=== PATIENT | female | born 1940 | race Caucasian/White ===

== ENCOUNTER 2025-05-17 09:07 | Inpatient (IN) | payer OTHER, SELFPAY ==
[2025-05-17 09:27] VITALS: BP 145/69
[2025-05-17 09:33] VITALS: BMI 36.4
--- NOTE | 2025-05-17 10:29 | CON.CAR ---
Addendum entered and electronically signed by Francisco Smith DO 05/17/25 15:18:
I saw and examined the patient.
The Hematologist Oncologist's note was reviewed and I agree with the note.
Comment:
Patient is pleasant 84-year-old female presenting initially for dofetilide load however has been reporting increasing shortness of breath, lower extremity swelling, weight gain, abdominal girth increase, and intermittent episodes of chest aching.
EKG demonstrates sinus rhythm anterior infarct pattern with lateral ST-T wave abnormality which appears similar to prior ECG. QT/QTc 369/439 ms. Additionally, patient's been noting episodes of PAF palpitations weakness and dizziness. Regarding
her chest pain, she notes that this is typically at rest with positioning and has not occurred with activity or exertion. Initial troponin negative, BNP 560.
GENERAL: no acute distress, obese
EYE: sclera anicteric
NECK: Supple, no JVD appreciated, no carotid bruit appreciated
ENT: normal nose, moist mucosal membranes
CARDIAC: Regular rate and rhythm, +S1/S2, no murmur, rubs, or gallops
CHEST/PULMONARY: Poor inspiratory effort, bibasilar crackles
ABDOMEN: Soft, without focal tenderness; mild distention
NEUROLOGICAL: Alert and oriented x3
SKIN: Warm and dry, no rash; 1+ bilateral lower extremity edema
PSYCH: Normal and appropriate interaction.
Telemetry shows sinus rhythm/a paced V sensed
A/P as below
Will discontinue digoxin monitor renal function. I am concerned that if patient were to have any renal dysfunction while on metformin and digoxin and dofetilide, this could account for serious complication therefore, would recommend discontinuation
of digoxin.
Echocardiogram pending
IV diuresis with Lasix 40 mg IV twice daily monitoring intake and output, daily weights, renal function
Replete magnesium, potassium
As patient nearing euvolemia, will start dofetilide
Monitor on telemetry
Original Note:
Consultation
Consultation Request
Date/Time Consultation Requested: 05/17/2025
Date/Time Consultation Performed: 05/17/2025
Reason for Consultation: H&P for direct admission for Tikosyn
Medical History
-
Chief Complaint: Palpitations, shortness of breath, chest pain
History of Present Illness:
84-year-old female with past medical history of paroxysmal atrial fibrillation s/p ablation in 2019, heart failure preserved EF, nonobstructive CAD, atrial tachycardia, hypertension, type 2 diabetes, obstructive sleep apnea on CPAP pacemaker (St
Humza MRI compatible), hyperlipidemia, stage IIIa chronic kidney disease, presents for elective admission for dofetilide loading in setting of increased A-fib burden. Patient is followed by Dr. Aguirre at [facility]. Most recently
she was seen in the office on 04/30/2025 and diltiazem was increased to 300 mg daily. She was subsequently started on digoxin load 0.5 mg x 2 days then 0.125 mcg daily. Losartan was stopped due to hypotension.
On presentation today, patient reports a 1-1/2-week history of left sided chest pain as well as back pain that occurs intermittently, does not radiate, not associated with exertion, most often occurs in the evenings. She has been more short of
breath with exertion and outpatient Lasix uptitrated to 40 mg twice daily with no improvement in shortness of breath and 7 pound weight gain over the past week. Baseline weight 191 pounds, weight up to 198 pounds. She has been having increasing
paroxysms of atrial fibrillation which are symptomatic with palpitations, weakness, and dizziness. A-fib can be triggered with minimal activity, walking from one side of the room to another. No syncope or falls.
In addition, her sugars have been more elevated, in the 300 range at times.
Past medical history:
Paroxysmal atrial fibrillation
- PVI 2019
Pacemaker, Saint Humza MRI compatible
Nonobstructive CAD per cath 03/2020
Heart failure preserved EF
Type 2 diabetes
obstructive sleep apnea on CPAP
Hypertension
Hyperlipidemia
Diabetic polyneuropathy
Past Medical History
Past Medical History: Other (As above)
Social History
Tobacco: Non-Smoker
Alcohol: None
Personal:
Living: With Family
Family History
Family History: Reviewed & Not Pertinent
Allergies / Home Medications
Allergy/AdvReac Type Severity Reaction Status Date / Time
cefprozil Allergy Mild loose Verified 08/09/20 07:19
stools
guaifenesin Allergy Unknown Unknown Verified 08/09/20 07:19
trimethoprim Allergy Unknown Unknown Verified 08/09/20 07:19
codeine Allergy Nausea Verified 08/09/20 07:19
ibuprofen Allergy loose Verified 08/09/20 07:19
stools
morphine Allergy Vomiting Verified 08/09/20 07:19
naproxen Allergy Nausea / Verified 08/09/20 07:19
Vomiting
shellfish derived Allergy Rash Verified 08/09/20 07:19
sulfamethoxazole Allergy Rash Verified 08/09/20 07:19
�Medication �Instructions �Recorded �Confirmed �Type
calcium 500 mg (as 1 ea PO BID 03/23/20 08/09/20 History
carbonate)-vitamin D3 3.125 mcg
(125 unit) tablet
carvedilol 12.5 mg tablet 12.5 mg PO BID ##180 03/23/20 08/09/20 Rx
diltiazem HCl 240 mg 240 mg PO NOON 03/23/20 08/09/20 History
capsule,extended release 24 hr
estradiol 0.01% (0.1 mg/gram) 42.5 gm VG .TWICEAWEEK 03/23/20 03/23/20 History
vaginal cream (Estrace)
famotidine 40 mg tablet (Pepcid) 40 mg PO HS 03/23/20 08/09/20 History
glimepiride 2 mg tablet 2 mg PO DAILY 03/23/20 08/09/20 History
insulin glargine 100 unit/mL 10 units SC NOON 03/23/20 08/09/20 History
subcutaneous solution (Lantus
U-100 Insulin)
losartan 50 mg tablet 50 mg PO HS 03/23/20 08/09/20 History
magnesium oxide 400 mg PO HS 03/23/20 08/09/20 History
multivitamin 1 ea PO DAILY 03/23/20 08/09/20 History
pyridoxine (vitamin B6) 100 mg 100 mg PO DAILY 03/23/20 08/09/20 History
tablet (Vitamin B-6)
apixaban 5 mg tablet (Eliquis) 5 mg PO BID #1 tab 08/09/20 08/09/20 Rx
furosemide 20 mg tablet 20 mg PO DAILY #1 tab 08/09/20 08/09/20 Rx
metformin 1,000 mg tablet 1,000 mg PO BID ##0 08/09/20 08/09/20 Rx
Review of Systems
-
History Source: Patient
All other systems: Negative unless noted
Constitutional: No Symptoms
Physical Exam
Vital Signs
Temp Pulse Resp BP Pulse Ox
98.7 F 70 18 145/69 94
05/17/25 09:33 05/17/25 10:15 05/17/25 09:33 05/17/25 09:27 05/17/25 09:33
GEN: No distress, awake, Ox3
HEENT: supple, anicteric, mmm
LUNGS: decreased at bases
CV: Reg, S1/S2, , no murmur
ABD: soft, BS+, NT/ND
EXT: 2+ B/L LE edema
NEURO: Gross non-focal
SKIN: No rash
Impression / Plan
-
PCP:
Primary blemish remover: Dr. Aguirre
Impression:
Symptomatic, paroxysmal atrial fibrillation
Chest pain
Shortness of breath
Lower extremity edema
Heart failure preserved EF
Permanent pacemaker, Saint Humza MRI compatible
Chronic kidney disease stage IIIa
Hypertension
Hyperlipidemia
Nonobstructive CAD
Obstructive sleep apnea on CPAP
Type 2 diabetes mellitus
Paralyzed vocal cords
Previous cardiovascular testing:
Echo 02/18/2025: LVEF 55 to 60%, mildly dilated LA, mild to moderate mitral stenosis, mean gradient 5 mmHg, RVSP 57 mmHg
Left heart cath 03/25/2020: LAD widely patent with minimal luminal irregularities. Diagonal branch 40% ostial stenosis. OM1 50% stenosis involving bifurcation of both branches. OM 2 smooth proximal 40% stenosis. RCA small nondominant vessel.
Plan:
symtomatic Paroxysmal afib
-currently on Digoxin 0.125 mg daily (added 05/07/2025), Coreg 6.25 mg bid and Diltiazem 300 mg daily with continued paroxysmal afib with RVR
-Currently in normal sinus rhythm
-eventual initiation of antiarrhythmic med with Tikosyn however treat HF and evaluate current CP/SOB first
-QTc 439 ms
-Dig level 0.8
-cont OAC with Eliquis
- Multaq because prohibitive in past
- Avoiding Amio due to history of COPD
Acute on chronic heart failure preserved EF
-Volume overloaded on exam and home weight up 7 pounds in past week. Baseline weight 191 pounds. Lasix uptitrated in past week without improvement in symptoms or weight
- Check proBNP
- Check updated echo
- Lasix 40 mg IV now
- Losartan recently stopped due to hypotension
- Continue Coreg 6.25 mg twice daily
-SGLT2-I cost prohibitive
Chest pain
-1-1/2-week history of intermittent chest pain
- Troponin negative x 1, will trend
- Check echo today
- History of nonobstructive CAD on cardiac cath in 2019
- Twelve-lead EKG: Normal sinus rhythm, first-degree AVB, nonspecific ST T wave abnormality, QTc 439 ms
Data Reviewed
-
EKG: Tracing Personally Visualized and interpreted
Labs: Labs Reviewed by me
Old Records: Requested and Reviewed
[2025-05-17 10:51] LABS: Hematocrit 28.7 % (37.0-47.0); Hemoglobin 9.5 g/dL (12.0-16.0); Mean Corp Hgb Conc. 33.1 g/dL (33.0-37.0); Mean Corpuscular Volume 95.0 fL (81.0-99.0); Platelet Count 226 10^3/uL (130-400); Red Cell Dist. Width 15.4 % (11.5-14.5)
[2025-05-17 10:53] LABS: ALT (SGPT) 19 U/L (0-35); AST (SGOT) 16 U/L (14-36); Albumin 4.1 g/dl (3.5-5.0); Alkaline Phosphatase 69 U/L (38-126); Blood Urea Nitrogen 19 mg/dl (7-17); Calcium 9.3 mg/dl (8.4-10.2); Carbon Dioxide 34 mmol/L (22-30); Chloride 96 mmol/L (98-107); Estimated Creatinine Clearance 66 ml/min; Glucose 365 mg/dl (70-99); Magnesium 1.4 mg/dl (1.6-2.3); Potassium 3.8 mmol/L (3.5-5.1); Sodium 136 mmol/L (135-145); Total Protein 6.7 g/dl (6.3-8.2); eGFR > 60.00
[2025-05-17 11:01] LABS: Troponin I < 0.012 ng/ml
[2025-05-17 11:13] LABS: Digoxin 0.8 ng/ml (0.8-2.0)
[2025-05-17 11:14] VITALS: BMI 36.4
[2025-05-17] MEDS: CARDIZEM CD PO (12:05)
[2025-05-17] MEDS: NEURONTIN PO (12:07)
[2025-05-17] MEDS: COREG PO (12:07)
[2025-05-17] MEDS: ELIQUIS PO (12:08)
[2025-05-17] MEDS: PROTONIX PO (12:09)
[2025-05-17] MEDS: LANTUS SC (12:11)
--- NOTE | 2025-05-17 12:12 | RESPNOTE ---
discussed NARA hx and cpap with patient and spouse. Mrs. Fu states she wears cpap at night with nasal pillows, with O2 when needed. patient nor recall cpap settings, but spouse recalls starting pressure of +4 cmh2o. patient agreeable to
trying hospital unit with nasal mask tonight. will TT [facility] [facility] for orders.
[2025-05-17] MEDS: LASIX 40 MG IV ×2 (12:26→17:15)
[2025-05-17 12:28] VITALS: BP 147/55
[2025-05-17] MEDS: MAGNESIUM OXIDE 400 MG PO ×2 (12:30→17:17)
[2025-05-17] MEDS: KCL 20 MEQ PO (12:30)
[2025-05-17] MEDS: GLUCOPHAGE 1000 MG PO (12:31)
[2025-05-17 13:24] LABS: Glucose - Point of Care 293 mg/dl (70-99)
[2025-05-17] MEDS: NOVOLOG FLEXPEN-MODERATE RESISTANCE 5 UNITS SC (13:34)
--- NOTE | 2025-05-17 14:06 | CM ---
Reviewed chart.. Met with and Mrs. Fu to review discharge plans. She states prior to admission she resides with her spouse in a one stroy home with one step to enter. She states prior to admission she ambulates with a rolling walker or singe
point cane depending on how she is feeling. She states she has a rolling walker, single point cane and home 02. [employer] [facility] her home 02. She states she has had VNA services [place] past. She also states she has been in SNF/Rehab. in
the past. She states she has a prescription plan and uses [facility]. Will check on her co-pay for Dofetilide. She will also need a three day script sent to [facility] for a three day supply to go home with her. Medically work-up in
progress. The discharge plan is to return home with her spouse when medically stable.
--- NOTE | 2025-05-17 14:11 | HPS.HSE ---
Addendum entered and electronically signed by Robert Elaine MD 05/17/25 16:19:
Patient seen and examined independently
Plan of care discussed with nurse practitioner Yolanda and cardiology team
Impression:
Acute CHF preserved EF
Acute hypoxic respiratory insufficiency secondary to above.
Symptomatic paroxysmal A-fib.
Chest pain likely multifactoral
Diabetes with hyperglycemia
Conditions present on admission:
Chronic CHF preserved EF
Paroxysmal A-fib with history of ablation.
Nonobstructive CAD
IDDM.
Hypertension
Obstructive sleep apnea on CPAP at night
Vocal cord paralysis
Chronic pain due to spinal stenosis on Suboxone
Plan:
Symptomatic A-fib baseline prior history of ablation
Attempt to introduce digoxin with no improvement of rate control.
Presented for Tikosyn load.
Plan is for discontinuation of digoxin
Optimizing volume status prior to initiation of Tikosyn.
In addition would optimal to drop off metformin given potential interaction and fluctuating renal function
Amiodarone is not an optimal action given COPD.
Continue Coreg.
Continue diltiazem.
Continue anticoagulation with apixaban
Telemetry monitoring
Acute CHF preserved EF.
Given chest pain, will update echocardiogram
Diuresis with Lasix 40 mg IV twice daily.
Daily weights
Daily BMP.
Off losartan given marginal BP
IDDM.
Persistent hyperglycemia. Possibly due to stress of acute hypoxia and CHF decompensation
Hold oral glucose lowering medications including glipizide and metformin
Update hemoglobin A1c
Basal bolus protocol
Continue Lantus 30 units at bedtime.
Adjust daily.
Obstructive sleep apnea
COPD by history
Not on oxygen supplementation prior to admission
Continue CPAP at night
Chronic pain due to spinal stenosis
Continue buprenorphine
Continue IV diuresis
Original Note:
Family Physician
-
Family Physician: INTERVIEWE UNKNOWN - PT NOT
Chief Complaint
-
dofetilide load
History of Present Illness
Patient is a 84-year-old female with past medical history significant for hypertension, type 2 diabetes, paroxysmal atrial fibrillation s/p ablation in 2019, HFpEF, hyperlipidemia and stage IIIa chronic kidney disease who presented to [facility] for
elective admission for dofetilide loading for a-fib. Patient and spouse at bedside. Patient follows with [facility] in [place], Dr. Aguirre. Patient seen 2 weeks ago with digoxin load and increased diltiazem to 300mg daily. Patient comes in
today for direct admission and reports left sided chest pain that radiates to the back that has been on going for a week and a half intermittently. Patient does report increased exertional dyspnea recently and a 7 pound weight gain in approximately
a week. Patient does report recent episodes of atrial fibrillation to be symptomatic with palpitations, weakness and diziness. Denies any syncope or falls.
Medical History
Past Medical History
Past Medical History: Reports Other
Additional Past Medical History:
hypertension
type 2 diabetes
paroxysmal atrial fibrillation s/p ablation in 2019
HFpEF
hyperlipidemia
stage IIIa chronic kidney disease
nonobstructive CAD
atrial tachycardia
obstructive sleep apnea on CPAP
pacemaker (St Humza MRI compatible)
Past Surgical History: Reports Other
Additional Past Surgical History:
bilateral hip replacements
left should repair
hysterectomy
tubal ligation
appendectomy
tonsillectomy
spinal stenosis
Social History
Tobacco: Non-smoker
Alcohol: Occasional
Drug: None
Personal:
Living: With Family
Employment: Retired
Family History
Family History: Other (Father: DM, CAD; Mother: CAD )
Allergies / Home Medications
Allergies reflects when Allergies were last updated in [employer].
Home Medications with original date entered in [employer]
Allergy/Medication List:
Allergies
Allergy/AdvReac Type Severity Reaction Status Date / Time
cefprozil Allergy Mild loose Verified 08/09/20 07:19
stools
guaifenesin Allergy Unknown Unknown Verified 08/09/20 07:19
trimethoprim Allergy Unknown Unknown Verified 08/09/20 07:19
codeine Allergy Nausea Verified 08/09/20 07:19
ibuprofen Allergy loose Verified 08/09/20 07:19
stools
morphine Allergy Vomiting Verified 08/09/20 07:19
naproxen Allergy Nausea / Verified 08/09/20 07:19
Vomiting
shellfish derived Allergy Rash Verified 08/09/20 07:19
sulfamethoxazole Allergy Rash Verified 08/09/20 07:19
Home Medications
calcium 500 mg (as carbonate)-vitamin D3 3.125 mcg (125 unit) tablet 1 ea PO BID 03/23/20
estradiol 0.01% (0.1 mg/gram) vaginal cream (Estrace) 42.5 gm VG .TWICEAWEEK 03/23/20
famotidine 40 mg tablet (Pepcid) 40 mg PO HS 03/23/20
glimepiride 2 mg tablet 2 mg PO DAILY 03/23/20
insulin glargine 100 unit/mL subcutaneous solution (Lantus U-100 Insulin) 10 units SC NOON 03/23/20
losartan 50 mg tablet 50 mg PO HS 03/23/20
magnesium oxide 400 mg PO HS 03/23/20
multivitamin 1 ea PO DAILY 03/23/20
apixaban 5 mg tablet (Eliquis) 5 mg PO BID #1 tab 08/09/20
metformin 1,000 mg tablet 1,000 mg PO BID ##0 08/09/20
azelastine 137 mcg (0.1 %) nasal spray 1 spray intranasal BID 05/17/25
buprenorphine 20 mcg/hour weekly transdermal patch 1 patch transdermal Q7D 05/17/25
carvedilol 6.25 mg tablet 6.25 mg PO BID 05/17/25
digoxin 125 mcg (0.125 mg) tablet 125 mcg PO DAILY 05/17/25
diltiazem HCl 300 mg capsule,24 hr,extended release 300 mg PO DAILY 05/17/25
ferrous sulfate 325 mg (65 mg iron) tablet,delayed release 325 mg PO DAILY 05/17/25
furosemide 20 mg tablet 40 mg PO DAILY 05/17/25
gabapentin 300 mg tablet 300 mg PO DAILY 05/17/25
gabapentin 600 mg tablet 600 mg PO HS 05/17/25
potassium gluconate 595 mg (99 mg) tablet 595 mg PO DAILY 05/17/25
tizanidine 2 mg capsule 2 mg PO QHS PRN muscle spasms 05/17/25
tramadol 50 mg tablet 50 mg PO TID PRN back pain 05/17/25
zinc acetate 50 mg (zinc) capsule 50 mg PO DAILY 05/17/25
Review of Systems
-
History Source: Patient
Constitutional: Reports Weight Gain; Denies Fever or Chills
EENT: Denies Sore Throat
Respiratory: Reports Trouble Breathing (exertional dyspnea ); Denies Cough
Cardiac: Reports Chest Pain (intermittent, no aggravating factors, radiates to back ) and Palpitations; Denies Diaphoresis or Syncope
Abdomen/GI: Denies Abdominal Pain, Nausea, Vomiting or Diarrhea
: Denies Dysuria, Frequency or Urgency
Musculoskeletal: Reports Edema
Skin: Denies Rash
Neurological: Reports Dizzy; Denies Headache, Weakness or Numbness
Hematologic/Lymphatic: Denies Bleeding
Physical Exam
Vital Signs
Vital Signs
Temp Pulse Resp BP Pulse Ox
98.7 F 66 18 147/55 93
05/17/25 09:33 05/17/25 12:26 05/17/25 09:33 05/17/25 12:26 05/17/25 10:57
Physical Exam
General: Well Nourished, No Apparent Distress, Comfortable, Conversant and Morbidly Obese
HEENT: NormoCephalic, Moist mucous membranes and Atraumatic
Respiratory: Clear, Non Labored Respirations and Decreased Breath Sounds (bilateral bases )
Cardiac: S1/S2, Regular Rhythm and Peripheral Edema (bilateral lower extremity +2 ); No Murmur, Rub or Gallop
Breast: Deferred by me
GI: Soft, Non Tender, Non Distended and Normal Bowel Sounds
Rectal: Deferred by Provider
Genito-urinary: Deferred by me
Musculoskeletal: No Clubbing and No Cyanosis
Skin: Warm and IV/Catheter Site
Neuro: Awake and AO x 3
Hematologic/Lymphatic: No Lymphadenopathy
Psych: Calm
Laboratory Results
-
05/17/25 10:15
05/17/25 10:15
Laboratory Results
Total Bilirubin 0.4 mg/dl (0.2-1.3) 05/17/25 10:15
AST 16 U/L (14-36) 05/17/25 10:15
ALT 19 U/L (0-35) 05/17/25 10:15
Alkaline Phosphatase 69 U/L (38-126) 05/17/25 10:15
Troponin I < 0.012 ng/ml 05/17/25 10:15
Data Reviewed
-
Diagnostic Radiology: Report Reviewed by me (CXR: No acute cardiopulmonary abnormality. Mild cardiomegaly.)
Medical Tests (Nuc Med, Echo, EKG etc): Report Reviewed by me (EKG: SINUS RHYTHM WITH 1ST DEGREE A-V BLOCK POSSIBLE ANTERIOR INFARCT (CITED ON OR BEFORE 05-Aug-2020) ST and T WAVE ABNORMALITY, CONSIDER LATERAL ISCHEMIA)
Lab Data: Labs Reviewed by me (hgb 9.5, hct 28.7, HCO3 34, BUN 19, Creat 0.7, est CrCl 66, eGFR >60.00, Mag 1.4)
Impression/Plan
-
IMPRESSION/PLAN:
#dofetilide load
hgb 9.5, hct 28.7, HCO3 34
EKG: SINUS RHYTHM WITH 1ST DEGREE A-V BLOCK
POSSIBLE ANTERIOR INFARCT (CITED ON OR BEFORE 05-Aug-2020)
ST and T WAVE ABNORMALITY, CONSIDER LATERAL ISCHEMIA
CXR: No acute cardiopulmonary abnormality.
Mild cardiomegaly.
- Admit to IVU
- Cardiology Consult
- load per Cardiology recs
#paroxysmal atrial fibrillation
s/p ablation in 2019
- continue carvedilol, diltiazem, and Eliquis
#hypomagnesemia
Mag 1.4
- replete
- monitor electrolytes
#hypertension
- continue losartan
#type 2 diabetes
- AccuCheck AC & HS
- SSI
- continue Lantus
- hold glimepiride
- hold metformin
#HFpEF
- daily weights
- I & Os
- continue carvedilol and digoxin
- IV furosemide BID
#hyperlipidemia
#stage IIIa chronic kidney disease
BUN 19, Creat 0.7, est CrCl 66, eGFR >60.00
Code status: full code
DVT prophylaxis: Eliquis
--- NOTE | 2025-05-17 15:11 | CARDSERVLU ---
Echocardiogram with [facility] completed after protocol screening completed. Allergies verified.
Patent IV site: _left wrist____
IV site flushed with 0.9% NaCl pre and post administration.
Diluted bolus method utilized to enhance visualization of ventricular avalos.
Total volume given: __3.5__ mL
Patient tolerated all procedures well without complications.
[2025-05-17 15:53] VITALS: BP 144/55
[2025-05-17] MEDS: KLOR-CON 20 MEQ PO (16:50)
[2025-05-17 17:41] LABS: Troponin I < 0.012 ng/ml
[2025-05-17 18:11] LABS: Glucose - Point of Care 301 mg/dl (70-99)
[2025-05-17] MEDS: NOVOLOG FLEXPEN-MODERATE RESISTANCE 7 UNITS SC (18:39)
[2025-05-17 18:54] VITALS: BP 140/47
--- NOTE | 2025-05-17 19:01 | PTCARENOTE ---
pt paced on the monitor, hr in the 70s, vss. when assuming care of pt, pt c/o 5/10 CP and 'some SOB.' 2LO2 NC applied. notified collin allen NP. IV started and blood work drawn as ordered. pt ambulating to bsx1 w/ rw and tolerating. pt educated
on plan of care and pt verbalized understanding.
pt denies cp/sob at this time. pt now resting in bed comfortably. call vásquez within reach.
[2025-05-17] MEDS: COREG 6.25 MG PO (19:47)
[2025-05-17] MEDS: ELIQUIS 5 MG PO (19:47)
[2025-05-17 22:57] VITALS: BP 151/75
[2025-05-17] MEDS: COZAAR 50 MG PO (22:59)
[2025-05-17] MEDS: ZANAFLEX 2 MG PO (22:59)
[2025-05-17] MEDS: NEURONTIN 600 MG PO (22:59)
[2025-05-17 23:04] LABS: Glucose - Point of Care 236 mg/dl (70-99)
[2025-05-18] VITALS (7 sets, daily range): BP systolic 103–146; BP diastolic 35–76; BMI 35.4
--- NOTE | 2025-05-18 01:50 | PTCARENOTE ---
Pt AAOx3 and SOBOBA bilaterally. Tele monitor NSR and occasionally Apaced, HR in the 60-70s. Patient sating 97-98% on 2L of O2. Pt c/o SOB on exertion, lungs clear throughout. Pt uses RW and requires standby assist when ambulating in room. Denies any
dizziness. Fall risk precautions maintained, pt rings appropriately. Pt voiding on BSC, monitoring output. Urine color orange d/t Pyridium medication. Pt denies any burning. Call vásquez within reach.
[2025-05-18 04:11] LABS: Hematocrit 29.8 % (37.0-47.0); Hemoglobin 9.8 g/dL (12.0-16.0); Mean Corp Hgb Conc. 32.9 g/dL (33.0-37.0); Mean Corpuscular Volume 94.6 fL (81.0-99.0); Platelet Count 223 10^3/uL (130-400); Red Cell Dist. Width 15.2 % (11.5-14.5)
[2025-05-18 04:39] LABS: Blood Urea Nitrogen 16 mg/dl (7-17); Calcium 9.4 mg/dl (8.4-10.2); Carbon Dioxide 37 mmol/L (22-30); Chloride 95 mmol/L (98-107); Estimated Creatinine Clearance 76 ml/min; Glucose 184 mg/dl (70-99); Potassium 3.8 mmol/L (3.5-5.1); Sodium 138 mmol/L (135-145); eGFR > 60.00
[2025-05-18 06:59] LABS: Glucose - Point of Care 148 mg/dl (70-99)
[2025-05-18] MEDS: NOVOLOG FLEXPEN-MODERATE RESISTANCE SC (07:48)
[2025-05-18] MEDS: PROTONIX 40 MG PO (08:53)
[2025-05-18] MEDS: FEOSOL 325 MG PO (08:53)
[2025-05-18] MEDS: KCL 20 MEQ PO ×2 (08:53→11:38)
[2025-05-18] MEDS: VITAMIN B-12 500 MCG PO (08:54)
[2025-05-18] MEDS: ELIQUIS 5 MG PO ×2 (08:54→19:41)
[2025-05-18] MEDS: OSCAL CAL 500 500 MG PO (08:54)
[2025-05-18] MEDS: THERAGRAN 1 TABLET PO (08:55)
[2025-05-18] MEDS: MAGNESIUM OXIDE 400 MG PO (08:55)
[2025-05-18] MEDS: NEURONTIN 300 MG PO (08:57)
[2025-05-18] MEDS: VITAMIN D3 (cholecalciferol) 25 MCG PO (08:57)
[2025-05-18] MEDS: COREG 6.25 MG PO ×2 (08:58→19:41)
[2025-05-18] MEDS: CARDIZEM CD 300 MG PO (08:58)
[2025-05-18] MEDS: LASIX 40 MG IV ×2 (08:59→16:00)
[2025-05-18] MEDS: LANTUS 0.3 UNITS SC (09:09)
--- NOTE | 2025-05-18 09:48 | PTCARENOTE ---
received patient this am, verified Buprenorphine patch on walking rounds. monitor shows NSR, VSS. EKG done this am as ordered.
[2025-05-18 11:33] LABS: Magnesium 1.5 mg/dl (1.6-2.3)
[2025-05-18 11:50] LABS: Glycohemoglobin (HgbA1c) 8.9 % (4.0-5.6)
--- NOTE | 2025-05-18 11:51 | W.PN.CARDCBS ---
Addendum entered and electronically signed by Eddie Peña MD 05/18/25 12:36:
I saw and examined the patient.
The FOLD SKIVER or PA's note was reviewed and I agree with the note.
Comment: General: Well developed, well nourished in NAD.
Neck: Supple, no JVD, HJR, carotids +2 B/L, no bruits bilaterally.
Heart: Non displaced PMI, RRR, no murmurs, No S3, S4, no rubs.
Lungs: Scattered rhonchi
Extremities: No clubbing, cyanosis or edema bilaterally.
Neuro: Grossly nonfocal, awake, alert and oriented x3.
Will continue to diurese and initiate Tikosyn which was planned to prevent recurrent A-fib
Original Note:
Today's Communication / Plan
-
-cont diuresis
-replete Mag
-will initiate Tikosyn
Impression / Plan
-
PCP:
Primary custom marine canvas fabricator: Dr. Aguirre
Impression:
Symptomatic, paroxysmal atrial fibrillation
Chest pain
Shortness of breath
Lower extremity edema
Heart failure preserved EF
Permanent pacemaker, [employer] MRI compatible
Chronic kidney disease stage IIIa
Hypertension
Hyperlipidemia
Nonobstructive CAD
Obstructive sleep apnea on CPAP
Type 2 diabetes mellitus
Paralyzed vocal cords
Previous cardiovascular testing:
Echo 02/18/2025: LVEF 55 to 60%, mildly dilated LA, mild to moderate mitral stenosis, mean gradient 5 mmHg, RVSP 57 mmHg
Left heart cath 03/25/2020: LAD widely patent with minimal luminal irregularities. Diagonal branch 40% ostial stenosis. OM1 50% stenosis involving bifurcation of both branches. OM 2 smooth proximal 40% stenosis. RCA small nondominant vessel.
Echo 05/17/2025: Normal LV size, LVEF 61%, normal RV size and systolic function with increased RV wall thickness, trileaflet sclerotic aortic valve, mild mitral stenosis, mean transmitral gradient 6 mmHg, mild to moderate TR, PASP 50 mmHg
Plan:
Symptomatic paroxysmal afib
-currently on Coreg 6.25 mg bid and Diltiazem 300 mg daily with continued paroxysmal afib with RVR in outpt setting. Admitted with plan to start Tikosyn but found to be in acute on chronic HF so diuresing first. Outpt Digoxin stopped due to
contraindicated with Tikosyn.
-Currently in normal sinus rhythm
-eventual initiation of antiarrhythmic med with Tikosyn however treat HF first
-QTc 428 ms
-cont OAC with Eliquis
- Multaq because prohibitive in past
- Avoiding Amio due to history of COPD
-keep K > 4, Mag >2. Will replete both today as K 3.8-on KCl 20 meq daily and ordered extra KCl 20 meq x 1. Mag 1.5- on Mag Oxide 400 mg daily, will give additional Magnesium 2 gm IV today
Acute on chronic heart failure preserved EF
-Volume overloaded on presentation w/ 7 lb wt gain in one week. Started on Lasix 40 mg IV twice daily and weight down 6 pounds overnight to 199 lbs with improvement in SOB and abd distention. Baseline weight 191 pounds. Cont IV Lasix.
- pro BNP 560 on admit 05/17/25
- Losartan recently stopped in outpt setting due to hypotension
-Replating K and mag as above
- Continue Coreg 6.25 mg twice daily
-SGLT2-I cost prohibitive
Progress Note - Portable Feed Mill Operator
Subjective
Date of Service: May 18, 2025
feels less SOB and pants less tight
maintaining NSR
Objective
Labs:
05/18/25 03:51
05/18/25 03:51
Labs
Hgb 9.8 g/dL (12.0-16.0) L 05/18/25 03:51
Hct 29.8 % (37.0-47.0) L 05/18/25 03:51
Plt Count 223 10^3/uL (130-400) 05/18/25 03:51
Sodium 138 mmol/L (135-145) 05/18/25 03:51
Potassium 3.8 mmol/L (3.5-5.1) 05/18/25 03:51
BUN 16 mg/dl (7-17) 05/18/25 03:51
Creatinine 0.6 mg/dL (0.6-1.0) 05/18/25 03:51
Glucose 184 mg/dl (70-99) H 05/18/25 03:51
Digoxin 0.8 ng/ml (0.8-2.0) 05/17/25 10:15
Troponins
05/17/25 05/17/25
10:15 16:48
Troponin I < 0.012 < 0.012
Vital Signs and I&O:
Vital Signs
Temp Pulse Resp BP Pulse Ox
98.5 F 71 20 120/48 96
05/18/25 06:57 05/18/25 10:00 05/18/25 06:57 05/18/25 07:01 05/18/25 08:30
Vital Signs
Temp Pulse Resp BP Pulse Ox
98.5 F 71 20 120/48 96
05/18/25 06:57 05/18/25 10:00 05/18/25 06:57 05/18/25 07:01 05/18/25 08:30
Intake & Output
05/16/25 05/17/25 05/18/25 05/19/25
06:59 06:59 06:59 06:59
Intake Total 840 / 840
Output Total 1950 / 1950
Balance -1110 / -1110
Physical Exam
Physical Exam
GEN: No distress, awake, Ox3
HEENT: supple, anicteric, mmm
LUNGS: rales R base
CV: Reg, S1/S2, , no murmur
ABD: soft, BS+, NT/ND
EXT: 1+ B/L LE edema
NEURO: Gross non-focal
SKIN: No rash
--- NOTE | 2025-05-18 12:03 | W.PN.HOSP.TC ---
Today's Communication/Plan
-
Continue IV diuresis
Assessment / Plan
Assessment / Plan
Impression:
Acute CHF preserved EF
Acute hypoxic respiratory insufficiency secondary to above.
Symptomatic paroxysmal A-fib.
Chest pain likely multifactoral
Diabetes with hyperglycemia
Conditions present on admission:
Chronic CHF preserved EF
Paroxysmal A-fib with history of ablation.
Nonobstructive CAD
IDDM.
Hypertension
Obstructive sleep apnea on CPAP at night
Vocal cord paralysis
Chronic pain due to spinal stenosis on Suboxone
Plan:
Symptomatic A-fib baseline prior history of ablation
Attempt to introduce digoxin with no improvement of rate control.
Presented for Tikosyn load.
Plan is for discontinuation of digoxin
Optimizing volume status prior to initiation of Tikosyn.
In addition would optimal to drop off metformin given potential interaction and fluctuating renal function
Amiodarone is not an optimal action given COPD.
Continue Coreg.
Continue diltiazem.
Continue anticoagulation with apixaban
Telemetry monitoring
Acute CHF preserved EF.
Given chest pain, will update echocardiogram
Diuresis with Lasix 40 mg IV twice daily.
Daily weights
Daily BMP.
Off losartan given marginal BP
IDDM.
Persistent hyperglycemia. Possibly due to stress of acute hypoxia and CHF decompensation
Hold oral glucose lowering medications including glipizide and metformin
Update hemoglobin A1c
Basal bolus protocol
Continue Lantus 30 units at bedtime.
Adjust daily.
Obstructive sleep apnea
COPD by history
Not on oxygen supplementation prior to admission
Continue CPAP at night
Chronic pain due to spinal stenosis
Continue buprenorphine
Anticipated Discharge: 24 - 48 hours
Subjective/Interval History
-
Date of Service: May 18, 2025
Objective Data
-
Labs:
Laboratory Results
05/18/25
03:51
WBC 6.9
Hgb 9.8 L
Hct 29.8 L
Plt Count 223
Sodium 138
Potassium 3.8
Chloride 95 L
Carbon Dioxide 37 H
BUN 16
Creatinine 0.6
Glucose 184 H
Calcium 9.4
Vital Signs:
Vital Signs
Temp Pulse Resp BP Pulse Ox
98.5 F 71 20 120/48 96
05/18/25 06:57 05/18/25 10:00 05/18/25 06:57 05/18/25 07:01 05/18/25 08:30
I&O
05/17/25 05/18/25 05/19/25
06:59 06:59 06:59
Intake Total 840 / 840
Output Total 1950 / 1949
Balance -1110 / -1110
Physical Exam
-
General: Well Developed and No Apparent Distress
HEENT: Normocephalic, Atraumatic and Moist Mucous Membranes
Respiratory: Clear to Auscultation
Cardiac: Regular Rhythm and S1/S2; Negative Murmur, Rub or Gallop
GI: Soft, Nontender, Nondistended and Normal Bowel Sounds; Negative Organomegaly
Rectal: Deferred by Provider
Musculoskeletal: No Clubbing, No Cyanosis and No Edema
Skin: Negative Rash
Neuro: Nonfocal/Grossly Intact
--- NOTE | 2025-05-18 12:38 | CM ---
Addendum entered by Laura Haile 05/18/25 15:33:
Telephone call to [facility] to check if they have Dofetilide 500 mcg bid. [facility] states they do have a Dofetilide 500 mcg in stock.
Addendum entered by Laura Haile 05/18/25 15:30:
Telephone call to [facility] to check on co-pay for Dofetilide 500 mcg bid to check on co-pay. Her co-pay would be zero.
Original Note:
Reviewed chart. Met with and Mrs. Fu to review discharge plans. She states she is feeling better. We reviewed VNA Services. At this time she is declining VNA Services. Prior to admission she resides with her spouse in a one story home
with one step to enter. Prior to admission she ambulates with a rolling walker or singe point cane depending on how she is feeling. She has a rolling walker, single point cane and home 02. [employer] services her home 02. She has had VNA services in
the distance past. She has been in SNF/Rehab. in the past. She has a prescription plan and uses [facility]. Will check on her co-pay for Dofetilide. She will also need a three day script sent to [facility] for a three day supply to go home
with her. Medically work-up in progress. The discharge plan is to return home with her spouse when medically stable.
[2025-05-18 12:49] LABS: Glucose - Point of Care 236 mg/dl (70-99)
[2025-05-18] MEDS: NOVOLOG FLEXPEN-MODERATE RESISTANCE 3 UNITS SC (12:58)
[2025-05-18] MEDS: MAGNESIUM SULFATE 50 IV (12:58)
--- NOTE | 2025-05-18 13:02 | PTCARENOTE ---
mag 1.5 supplemented as ordered. K 3.8 supplemented as ordered.
--- NOTE | 2025-05-18 14:00 | W.CARD.TIKOS ---
Initiate Tikosyn
-
I verify that the patient has not taken any verapamil (Isoptin/Calan), ketoconazole (Nizoral), cimetidine (Tagamet), trimethoprim (Trimpex), trimethoprim/sulfamethoxazole (Bactrim), megesterol (Megace), prochlorperazine (Compazine),
hydrochlorothiazide (HCTZ), dolutegravir (Tivicay) or any Class I or Class III anti-arrhythmic within the last three days
AND
I verify that the patient has not taken amiodarone within the last THREE months, or that the patient's amiodarone plasma concentration is <0.3 mcg/mL.
Creatinine 0.6 mg/dL (0.6-1.0) 05/18/25 03:51
Estimated Creat Clear 76 ml/min 05/18/25 03:51
calculated creatinine clearance 101.4
Does patient have a Ventricular Conduction Abnormality: No
I have assessed the baseline QTc interval (using QT for heart rate less than 60 bpm) and deemed the patient is appropriate for Dofetilide therapy. I understand that Tikosyn is contraindicated if the QTc is >440msec (500msec in patients with
ventricular conduction abnormalities).
Baseline QTc (in msec): 428
QTc interval is greater than 440msec without conduction abnormality OR greater than 500msec with a conduction abnormality, but acceptable to proceed per Cardiology attending.
Ordering Physician: Eddie Peña
[2025-05-18] MEDS: TIKOSYN 500 MCG PO (16:03)
[2025-05-18 17:56] LABS: Glucose - Point of Care 316 mg/dl (70-99)
[2025-05-18] MEDS: NOVOLOG FLEXPEN-MODERATE RESISTANCE 7 UNITS SC (17:57)
--- NOTE | 2025-05-18 18:29 | PTCARENOTE ---
Addendum entered by Nohemy Crowder RN 05/18/25 18:46:
correction QTC 471
Original Note:
Tikosyn imitated, post 2 hour EKG, QTC 428, no further orders at this time.
[2025-05-18] MEDS: NEURONTIN 600 MG PO (22:12)
[2025-05-18] MEDS: COZAAR 50 MG PO (22:12)
[2025-05-18] MEDS: ZANAFLEX 2 MG PO (22:12)
[2025-05-18 22:17] LABS: Glucose - Point of Care 400 mg/dl (70-99)
[2025-05-18 23:12] LABS: Glucose 375 mg/dl (70-99)
[2025-05-18] MEDS: NOVOLOG FLEXPEN 9 UNITS SC (23:27)
[2025-05-19] VITALS (9 sets, daily range): BP systolic 115–148; BP diastolic 43–68; PULSE 62–64; BMI 35.5
[2025-05-19] MEDS: NOVOLOG FLEXPEN 2 UNITS SC (02:07)
--- NOTE | 2025-05-19 02:27 | DOWNTIME ---
There was a [employer] Client Lead Java Software Engineer Downtime on 05/19/2025 from 0100 to 05/19/2025 at 0215. Downtime documentation of patient's care, including medication administrations, has been reconciled in the electronic record per guidelines. Refer to the
patient's paper chart under the miscellaneous tab to see printed paper medication records and downtime forms.
--- NOTE | 2025-05-19 02:53 | PTCARENOTE ---
Tele monitor remains SR w/ AV block and occasionally Apaced. Pt denies any pain or discomfort. Sating 96% on 2L of O2, and remains YU. Lungs clear throughout. CPAP ordered for HS.
HS Blood sugar 400. Stat venous glucose obtained per protocol w/ a result of 375. Josephine SOCIAL WORK INSTRUCTOR aware. Orders obtained for 9 Units of Novolog, given at 23:27. Repeat accucheck in 2hrs w/ a result of 311. Josephine SOCIAL WORK INSTRUCTOR updated. Orders obtained to
administer 2 units of Novolog, and repeat blood sugar 2hrs post med administration. See MAR for further details. Pt aware of POC. Fall risk precautions maintained. Call vásquez in reach.
[2025-05-19 04:15] LABS: Glucose - Point of Care 234 mg/dl (70-99)
[2025-05-19 05:10] LABS: Blood Urea Nitrogen 18 mg/dl (7-17); Calcium 9.8 mg/dl (8.4-10.2); Carbon Dioxide 37 mmol/L (22-30); Chloride 95 mmol/L (98-107); Estimated Creatinine Clearance 57 ml/min; Glucose 235 mg/dl (70-99); Magnesium 2.2 mg/dl (1.6-2.3); Potassium 4.1 mmol/L (3.5-5.1); Sodium 138 mmol/L (135-145); eGFR > 60.00
[2025-05-19] MEDS: TIKOSYN 500 MCG PO ×2 (05:32→17:12)
[2025-05-19] MEDS: ULTRAM 50 MG PO ×2 (05:40→22:27)
--- NOTE | 2025-05-19 07:38 | W.PN.CARDCBS ---
Addendum entered and electronically signed by Eddie Peña MD 05/19/25 09:20:
I saw and examined the patient.
The GENERAL ADJUSTER or PA's note was reviewed and I agree with the note.
Comment: General: Well developed, well nourished in NAD.
Neck: Supple, no JVD, HJR, carotids +2 B/L, no bruits bilaterally.
Heart: Non displaced PMI, RRR, no murmurs, No S3, S4, no rubs.
Lungs: Scattered rhonchi
Extremities: No clubbing, cyanosis or edema bilaterally.
Neuro: Grossly nonfocal, awake, alert and oriented x3.
Will continue to treat CHF with IV Lasix. Tolerating Tikosyn loading. Remains in sinus rhythm
Original Note:
Today's Communication / Plan
-
continue IV lasix
continue tikosyn
follow QTc
continue eliquis
Impression / Plan
-
PCP:
Primary heading up machine operator: Dr. Aguirre
Impression:
Symptomatic, paroxysmal atrial fibrillation
Chest pain
Shortness of breath
Lower extremity edema
Heart failure preserved EF
Permanent pacemaker, [employer] MRI compatible
Chronic kidney disease stage IIIa
Hypertension
Hyperlipidemia
Nonobstructive CAD
Obstructive sleep apnea on CPAP
Type 2 diabetes mellitus
Paralyzed vocal cords
Previous cardiovascular testing:
Echo 02/18/2025: LVEF 55 to 60%, mildly dilated LA, mild to moderate mitral stenosis, mean gradient 5 mmHg, RVSP 57 mmHg
Left heart cath 03/25/2020: LAD widely patent with minimal luminal irregularities. Diagonal branch 40% ostial stenosis. OM1 50% stenosis involving bifurcation of both branches. OM 2 smooth proximal 40% stenosis. RCA small nondominant vessel.
Echo 05/17/2025: Normal LV size, LVEF 61%, normal RV size and systolic function with increased RV wall thickness, trileaflet sclerotic aortic valve, mild mitral stenosis, mean transmitral gradient 6 mmHg, mild to moderate TR, PASP 50 mmHg
Plan:
-presented for tikosyn loading and noted to be in acute CHF and with CP
-trops negative x2
-being diuresed with IV lasix 40mg BID. Cr stable at 0.8. was on po lasix 40mg daily prior to admission
-CHF education
-in SR. OP digoxin stopped as contraindicated with tikosyn. continue coreg, diltiazem.
-continue tikosyn 500mcg Q12H. follow QTc, stable by EKG 05/18. avoiding amiodarone due to COPD
-continue eliquis. hgb in 9s
-Losartan recently stopped in outpt setting due to hypotension
-SGLT2-I cost prohibitive
-OP follow up with ATC
-plan for DC in AM after 5th dose if remains stable
Progress Note - Treating Plant Operator
Subjective
Date of Service: May 19, 2025
feeling well. denies SOB
Objective
Labs:
05/18/25 03:51
05/19/25 03:56
Labs
Hgb 9.8 g/dL (12.0-16.0) L 05/18/25 03:51
Hct 29.8 % (37.0-47.0) L 05/18/25 03:51
Plt Count 223 10^3/uL (130-400) 05/18/25 03:51
Sodium 138 mmol/L (135-145) 05/19/25 03:56
Potassium 4.1 mmol/L (3.5-5.1) 05/19/25 03:56
BUN 18 mg/dl (7-17) H 05/19/25 03:56
Creatinine 0.8 mg/dL (0.6-1.0) 05/19/25 03:56
Glucose 235 mg/dl (70-99) H 05/19/25 03:56
Digoxin 0.8 ng/ml (0.8-2.0) 05/17/25 10:15
Troponins
05/17/25 05/17/25
10:15 16:48
Troponin I < 0.012 < 0.012
Vital Signs and I&O:
Vital Signs
Temp Pulse Resp BP Pulse Ox
98.5 F 61 15 140/59 98
05/19/25 03:52 05/19/25 06:00 05/19/25 05:00 05/19/25 03:53 05/19/25 03:52
Vital Signs
Temp Pulse Resp BP Pulse Ox
98.5 F 61 15 140/59 98
05/19/25 03:52 05/19/25 06:00 05/19/25 05:00 05/19/25 03:53 05/19/25 03:52
Intake & Output
05/16/25 05/17/25 05/18/25 05/19/25
07:59 07:59 07:59 07:59
Intake Total 840 / 840 290 / 290
Output Total 1950 / 1950 1500 / 1500
Balance -1110 / -1110 -1210 / -1210
Physical Exam
Physical Exam
GEN: No distress, awake, alert, oriented x3. Sitting in chair
HEENT: supple, anicteric, mmm, eomi
LUNGS: CTA B/L, no wheezes/rales
CV: Reg, S1/S2, no murmur
ABD: soft, BS+, NT/ND
EXT: No cyanosis, clubbing. 1+ edema of B/L LE
NEURO: Gross non-focal
SKIN: Warm, pink, dry. No rash
[2025-05-19 08:35] LABS: Glucose - Point of Care 311 mg/dl (70-99)
[2025-05-19 08:45] LABS: Glucose - Point of Care 219 mg/dl (70-99)
[2025-05-19] MEDS: KCL 20 MEQ PO (09:08)
[2025-05-19] MEDS: CARDIZEM CD 300 MG PO (09:08)
[2025-05-19] MEDS: VITAMIN B-12 500 MCG PO (09:08)
[2025-05-19] MEDS: NEURONTIN 300 MG PO (09:08)
[2025-05-19] MEDS: MAGNESIUM OXIDE 400 MG PO (09:08)
[2025-05-19] MEDS: COREG 6.25 MG PO ×2 (09:09→20:03)
[2025-05-19] MEDS: PROTONIX 40 MG PO (09:09)
[2025-05-19] MEDS: OSCAL CAL 500 500 MG PO (09:09)
[2025-05-19] MEDS: THERAGRAN 1 TABLET PO (09:10)
[2025-05-19] MEDS: FEOSOL 325 MG PO (09:10)
[2025-05-19] MEDS: LASIX 40 MG IV ×2 (09:10→15:44)
[2025-05-19] MEDS: ELIQUIS 5 MG PO ×2 (09:10→20:02)
[2025-05-19] MEDS: VITAMIN D3 (cholecalciferol) 25 MCG PO (09:10)
[2025-05-19] MEDS: LANTUS 0.3 UNITS SC (09:16)
[2025-05-19] MEDS: NOVOLOG FLEXPEN-MODERATE RESISTANCE 3 UNITS SC (09:16)
--- NOTE | 2025-05-19 10:34 | CM ---
Reviewed chart. Met with Mrs. Fu to review discharge plans. She states she is feeling better. Reviewed with her that her co-pay for Dofetilide is zero. Will need a three day script sent to [facility] for a three day supply to go home with
her. Reviewed VNA Services and she is still declining VNA Services. Prior to admission she resides with her spouse in a one story home with one step to enter. Prior to admission she ambulates with a rolling walker or singe point cane depending on
how she is feeling. She has a rolling walker, single point cane and home 02. [email or web address] services her home 02. She has had VNA services in the distance past. She has been in SNF/Rehab. in the past. She has a prescription plan and uses [facility].
Medically work-up in progress. The discharge plan is to return home with her spouse when medically stable.
[2025-05-19 12:59] LABS: Glucose - Point of Care 326 mg/dl (70-99)
[2025-05-19] MEDS: NOVOLOG FLEXPEN-MODERATE RESISTANCE 7 UNITS SC (13:03)
--- NOTE | 2025-05-19 15:10 | W.PN.HOSP.TC ---
Today's Communication/Plan
-
IV diuresis
Tikosyn load
Adjust insulin regimen
CPAP at night
Assessment / Plan
Assessment / Plan
Impression:
Acute CHF preserved EF
Acute hypoxic respiratory insufficiency secondary to above.
Symptomatic paroxysmal A-fib.
Chest pain likely multifactoral
Diabetes with hyperglycemia
Conditions present on admission:
Chronic CHF preserved EF
Paroxysmal A-fib with history of ablation.
Nonobstructive CAD
IDDM.
Hypertension
Obstructive sleep apnea on CPAP at night
Vocal cord paralysis
Chronic pain due to spinal stenosis on Suboxone
Plan:
Symptomatic A-fib baseline prior history of ablation
Attempt to introduce digoxin with no improvement of rate control.
Presented for Tikosyn load.
Plan is for discontinuation of digoxin
Optimizing volume status prior to initiation of Tikosyn.
In addition would optimal to drop off metformin given potential interaction and fluctuating renal function
Amiodarone is not an optimal action given COPD.
Continue Coreg.
Continue diltiazem.
Tikosyn load as per cardiology
Continue anticoagulation with apixaban
Telemetry monitoring
Acute CHF preserved EF.
Given chest pain, will update echocardiogram
Diuresis with Lasix 40 mg IV twice daily.
Daily weights
Daily BMP.
Off losartan given marginal BP
IDDM.
Persistent hyperglycemia. Possibly due to stress of acute hypoxia and CHF decompensation
Hold oral glucose lowering medications including glipizide and metformin
Update hemoglobin A1c 8.9
Basal bolus protocol
Continue Lantus 30 units at bedtime.
Adjust daily.
Obstructive sleep apnea
COPD by history
Not on oxygen supplementation prior to admission
Continue CPAP at night
Chronic pain due to spinal stenosis
Continue buprenorphine
Anticipated Discharge: 24 - 48 hours
Subjective/Interval History
-
Date of Service: May 19, 2025
Objective Data
-
Labs:
Laboratory Results
05/19/25
03:56
Sodium 138
Potassium 4.1
Chloride 95 L
Carbon Dioxide 37 H
BUN 18 H
Creatinine 0.8
Glucose 235 H
Calcium 9.8
Vital Signs:
Vital Signs
Temp Pulse Resp BP Pulse Ox
98.5 F 62 20 117/43 96
05/19/25 11:48 05/19/25 12:00 05/19/25 11:48 05/19/25 11:47 05/19/25 11:48
I&O
05/18/25 05/19/25 05/20/25
06:59 06:59 06:59
Intake Total 840 / 840 290 / 290
Output Total 1950 / 1950 1500 / 1500
Balance -1110 / -1110 -1210 / -1210
Physical Exam
-
General: Well Developed and No Apparent Distress
HEENT: Normocephalic, Atraumatic and Moist Mucous Membranes
Respiratory: Clear to Auscultation
Cardiac: Regular Rhythm and S1/S2; Negative Murmur, Rub or Gallop
GI: Soft, Nontender, Nondistended and Normal Bowel Sounds; Negative Organomegaly
Rectal: Deferred by Provider
Musculoskeletal: No Clubbing, No Cyanosis and No Edema
Skin: Negative Rash
Neuro: Nonfocal/Grossly Intact
--- NOTE | 2025-05-19 16:54 | PTCARENOTE ---
Assumed care of the pt @ 0700. Pt is AAOx3 A paced on the monitor. EKG post am dose Tikosyn [id number]. Pt ambulates to bathroom with 1 person assist with walker. NC 2 LPM. Call vásquez within reach
[2025-05-19] MEDS: NOVOLOG FLEXPEN-MODERATE RESISTANCE 9 UNITS SC (17:35)
[2025-05-19 17:36] LABS: Glucose - Point of Care 358 mg/dl (70-99)
[2025-05-19] MEDS: TYLENOL 650 MG PO (20:03)
--- NOTE | 2025-05-19 21:19 | PTCARENOTE ---
Assumed care of patient at change of shift. Pt received 3rd dose of Tikosyn at 17:12. EKG obtained 2hrs post by day shift RNs. QTc level 419. Tele remains NSR w/ 1st AV block and Apaced. VSS, pt remains on 2L of O2 sating 97%. Lungs clear
throughout. Pt c/o hip pain that radiates to her toes, pt reports this is her usual. PRN Tylenol administered at 20:03, per pts request. Pt aware of POC, and can make needs known. Call vásquez in reach.
[2025-05-19] MEDS: COZAAR 50 MG PO (22:27)
[2025-05-19] MEDS: NEURONTIN 600 MG PO (22:27)
[2025-05-19] MEDS: ZANAFLEX 2 MG PO (22:27)
[2025-05-19 22:36] LABS: Glucose - Point of Care 372 mg/dl (70-99)
[2025-05-19] MEDS: NOVOLOG FLEXPEN 10 UNITS SC (22:53)
[2025-05-20] VITALS (10 sets, daily range): BP systolic 105–168; BP diastolic 42–106; PULSE 64; BMI 35.7
[2025-05-20 01:01] LABS: Glucose - Point of Care 353 mg/dl (70-99)
[2025-05-20] MEDS: NOVOLOG FLEXPEN 4 UNITS SC ×3 (01:33→18:26)
--- NOTE | 2025-05-20 01:38 | PTCARENOTE ---
HS blood sugar 372. S.Brock DOCUMENTATION WRITER made aware, orders obtained for 10 units of Novolog. See MAR for further details. BS obtained 2hrs post w/ a result of 353. S.Brock DOCUMENTATION WRITER made aware again. Orders obtained from DOCUMENTATION WRITER, this RN administered 4 units of
Novolog. Will repeat accucheck in 2hrs per order. Call vásquez in reach.
[2025-05-20 03:49] LABS: Glucose - Point of Care 287 mg/dl (70-99)
--- NOTE | 2025-05-20 03:55 | W.PN.UPDATE ---
Update Note
Progress Note Update
~ 4 am Patient c/o chest pain, rated 7 out of 10. Described as pressure, does not radiate. Patient does not feel dizzy, lightheaded, n/v.
Vital signs stable:BP 133/45, HR 60, Resp 16, 95% on CPAP, temp 97.8.
EKG shows atrial paced rhythm with prolonged AV conduction, possible anterior infarct, age undetermined, Abnormal ECG. Similar to previous EKG.
Troponin ordered, result 0.012. Patient stated chest discomfort is subsiding. Ordered Tramadol 25 mg PO x 1 for chest discomfort.
[2025-05-20 04:22] LABS: Hematocrit 28.8 % (37.0-47.0); Hemoglobin 9.2 g/dL (12.0-16.0); Mean Corp Hgb Conc. 31.9 g/dL (33.0-37.0); Mean Corpuscular Volume 93.8 fL (81.0-99.0); Platelet Count 216 10^3/uL (130-400); Red Cell Dist. Width 15.2 % (11.5-14.5)
[2025-05-20] MEDS: ULTRAM 25 MG PO (04:35)
[2025-05-20 04:39] LABS: Blood Urea Nitrogen 19 mg/dl (7-17); Calcium 9.7 mg/dl (8.4-10.2); Carbon Dioxide 35 mmol/L (22-30); Chloride 94 mmol/L (98-107); Estimated Creatinine Clearance 57 ml/min; Glucose 279 mg/dl (70-99); Magnesium 1.9 mg/dl (1.6-2.3); Potassium 4.4 mmol/L (3.5-5.1); Sodium 135 mmol/L (135-145); eGFR > 60.00
--- NOTE | 2025-05-20 04:40 | PTCARENOTE ---
Addendum entered by Janna Garza RN 05/20/25 04:41:
Yumiko ASSOCIATE CHIEF NURSE at bedside, and placed all orders listed below.
Original Note:
At approx 03:50 pt c/o midsternal chest discomfort. Described as 'Pressure', and rated it 5-7/10. BP 133/45. Afebrile, sating 95% on CPAP. Yumiko ASSOCIATE CHIEF NURSE made aware. EKG obtained Apaced w/ prolonged AV conduction. Troponin & CBC obtained and sent to
lab. 25mg Ultram ordered STAT, medication administered at 04:35. Repositioned pt, placed call vásquez within reach.
[2025-05-20] MEDS: TIKOSYN 500 MCG PO (04:45)
[2025-05-20 04:49] LABS: Troponin I < 0.012 ng/ml
--- NOTE | 2025-05-20 07:46 | PTCARENOTE ---
Assumed care of the pt @ 0700. Pt is AAOx3 A paced on the monitor VSS. Pt states her cp that started overnight has improved. Pt ambulates to bathroom with 1 person assist with walker urine orange. Call vásquez within reach.
--- NOTE | 2025-05-20 08:35 | W.PN.CARDCBS ---
Addendum entered and electronically signed by Roosevelt Vasquez MD 05/20/25 12:10:
84-year-old woman with PAF admitted for dofetilide loading.
PMH: HFpEF, [employer]za pacemaker, CKD 3 AA, hypertension, hyperlipidemia, luminal irregularities by cardiac catheterization 2019, type 2 diabetes, paralyzed vocal cord. Based on this, we will decrease dofetilide to 250 mcg twice daily and increase
based rate of pacemaker to 70 bpm.
Meds reviewed
105/42, pulse 60, respiratory rate 20, afebrile, weight 91.5 kg, if accurate up 0.6 kg, was 93.1 kg on admit, lungs diminished, regular rate and rhythm without murmurs, JVD difficult to assess, abdomen benign, 2+ to 3+ edema
Still with chest discomfort, multiple negative troponins and no ST segment changes
ECG: Atrial paced, rate 60, prolonged AV delay, QT C is top normal
Hemoglobin 9.2, BUN and creatinine are 19 and 0.8, CO2 is 35, potassium is 4.4. proBNP was in the 500s at admission.
Impression:
Paroxysmal atrial fibrillation, admitted for dofetilide loading
Other diagnoses as below. Note below reviewed in detail and agree, unless otherwise specified.
Plan:
QT interval is top normal on dofetilide 500 mcg twice daily, patient is on diltiazem which will increase dofetilide levels further, and also she is relatively bradycardic at 60, paced.
Based upon this we will decrease dofetilide to 250 mcg twice daily and increase base rate of pacer to 70 bpm
She is still somewhat volume overloaded but not in particular distress. Will continue IV furosemide 40 mg IV twice daily.
Defer to primary director of marketing communications regarding spironolactone, SGLT2 antagonist, discontinuation of diltiazem and possible substitution of beta-jeanette given HFpEF.
Anticipate discharge in a.m. if stable
Original Note:
Today's Communication / Plan
-
continue IV lasix
compression stockings
trend trop. no present CP
continue tikosyn. QTc stable
blood sugar mgmt per primary service
Impression / Plan
-
PCP:
Primary director of marketing communications: Dr. Aguirre
Impression:
Symptomatic, paroxysmal atrial fibrillation
Chest pain
Shortness of breath
Lower extremity edema
Heart failure preserved EF
Permanent pacemaker, Saint Humza MRI compatible
Chronic kidney disease stage IIIa
Hypertension
Hyperlipidemia
Nonobstructive CAD
Obstructive sleep apnea on CPAP
Type 2 diabetes mellitus
Paralyzed vocal cords
Previous cardiovascular testing:
Echo 02/18/2025: LVEF 55 to 60%, mildly dilated LA, mild to moderate mitral stenosis, mean gradient 5 mmHg, RVSP 57 mmHg
Left heart cath 03/25/2020: LAD widely patent with minimal luminal irregularities. Diagonal branch 40% ostial stenosis. OM1 50% stenosis involving bifurcation of both branches. OM 2 smooth proximal 40% stenosis. RCA small nondominant vessel.
Echo 05/17/2025: Normal LV size, LVEF 61%, normal RV size and systolic function with increased RV wall thickness, trileaflet sclerotic aortic valve, mild mitral stenosis, mean transmitral gradient 6 mmHg, mild to moderate TR, PASP 50 mmHg
Plan:
-presented for tikosyn loading and noted to be in acute CHF and with CP
-trops negative x2. had episode of CP overnight, improved with tramadol. trop negative, trend.
-being diuresed with IV lasix 40mg BID. Cr stable at 0.8. was on po lasix 40mg daily prior to admission. unclear if weights accurate as uptrending over last 48 hours
-CHF education
-compression stockings ordered
-in apaced rhythm. OP digoxin stopped this admit as contraindicated with tikosyn. continue coreg, diltiazem.
-continue tikosyn 500mcg Q12H. follow QTc, stable by EKG 05/20. avoiding amiodarone due to COPD
-continue eliquis. hgb in 9s, stable
-Losartan recently stopped in outpt setting due to hypotension
-SGLT2-I cost prohibitive. mgmt of DM2 per primary service, noted to have elevated blood sugars since admission
-OP follow up with [facility]
-possible DC in AM
Progress Note - Rug Frame Mounter
Subjective
Date of Service: May 20, 2025
Reports episode of central to left-sided chest discomfort overnight. No chest pain at present. Reports good urine output with Lasix. Reports remains with some lower extremity edema particularly in feet
Objective
Labs:
05/20/25 04:04
05/20/25 04:00
Labs
Hgb 9.2 g/dL (12.0-16.0) L 05/20/25 04:04
Hct 28.8 % (37.0-47.0) L 05/20/25 04:04
Plt Count 216 10^3/uL (130-400) 05/20/25 04:04
Sodium 135 mmol/L (135-145) 05/20/25 04:00
Potassium 4.4 mmol/L (3.5-5.1) 05/20/25 04:00
BUN 19 mg/dl (7-17) H 05/20/25 04:00
Creatinine 0.8 mg/dL (0.6-1.0) 05/20/25 04:00
Glucose 279 mg/dl (70-99) H 05/20/25 04:00
Digoxin 0.8 ng/ml (0.8-2.0) 05/17/25 10:15
Troponins
05/17/25 05/17/25 05/20/25
10:15 16:48 04:00
Troponin I < 0.012 < 0.012 < 0.012
Vital Signs and I&O:
Vital Signs
Temp Pulse Resp BP Pulse Ox
97.8 F 60 20 105/42 97
05/20/25 06:51 05/20/25 07:00 05/20/25 06:51 05/20/25 06:51 05/20/25 06:51
Vital Signs
Temp Pulse Resp BP Pulse Ox
97.8 F 60 20 105/42 97
05/20/25 06:51 05/20/25 07:00 05/20/25 06:51 05/20/25 06:51 05/20/25 06:51
Intake & Output
05/18/25 05/19/25 05/20/25 05/21/25
07:59 07:59 07:59 07:59
Intake Total 840 / 840 290 / 290 240 / 240
Output Total 1950 / 1950 1500 / 1500 1825 / 1825
Balance -1110 / -1110 -1210 / -1210 -1585 / -1585
Physical Exam
Physical Exam
GEN: No distress, awake, alert, oriented x3. Sitting in chair
HEENT: supple, anicteric, mmm, eomi
LUNGS: CTA B/L, no wheezes/rales
CV: Reg, S1/S2, no murmur
ABD: soft, BS+, NT/ND
EXT: No cyanosis, clubbing. 1+ edema of B/L LE
NEURO: Gross non-focal
SKIN: Warm, pink, dry. No rash
[2025-05-20] MEDS: PROTONIX 40 MG PO (08:38)
[2025-05-20] MEDS: LASIX 40 MG IV ×2 (08:38→15:20)
[2025-05-20] MEDS: ELIQUIS 5 MG PO ×2 (08:38→19:56)
[2025-05-20] MEDS: KCL 20 MEQ PO (08:39)
[2025-05-20] MEDS: MAGNESIUM OXIDE 400 MG PO (08:39)
[2025-05-20] MEDS: VITAMIN B-12 500 MCG PO (08:39)
[2025-05-20] MEDS: FEOSOL 325 MG PO (08:39)
[2025-05-20] MEDS: VITAMIN D3 (cholecalciferol) 25 MCG PO (08:39)
[2025-05-20] MEDS: COREG 6.25 MG PO ×2 (08:39→19:55)
[2025-05-20] MEDS: CARDIZEM CD 300 MG PO (08:39)
[2025-05-20] MEDS: THERAGRAN 1 TABLET PO (08:39)
[2025-05-20] MEDS: OSCAL CAL 500 500 MG PO (08:39)
[2025-05-20 08:40] LABS: Glucose - Point of Care 294 mg/dl (70-99)
[2025-05-20] MEDS: NEURONTIN 300 MG PO (08:40)
[2025-05-20] MEDS: NOVOLOG FLEXPEN-MODERATE RESISTANCE 5 UNITS SC (08:40)
[2025-05-20] MEDS: LANTUS 0.3 UNITS SC (08:43)
[2025-05-20 09:48] LABS: Glucose - Point of Care 362 mg/dl (70-99)
[2025-05-20 10:30] LABS: Troponin I < 0.012 ng/ml
[2025-05-20] MEDS: MAALOX 30 ML PO (10:37)
--- NOTE | 2025-05-20 10:49 | PTCARENOTE ---
Pt c/o chest discomfort, she says, 'it feels like indigestion'. Galilea Johnson aware, order obtained for Maalox. Pt med with Maalox, awaiting relief.
--- NOTE | 2025-05-20 10:51 | PTCARENOTE ---
Tubigrip compression stockings applied to bilat lower legs, as ordered.
[2025-05-20] MEDS: TYLENOL 650 MG PO ×2 (10:58→22:26)
--- NOTE | 2025-05-20 12:21 | PTCARENOTE ---
Pt requested Tylenol for for chest discomfort given @ 1100. Pt admits some relief afterwards.
--- NOTE | 2025-05-20 12:50 | CM ---
Reviewed chart. Met with and Mrs. Fu to review discharge plans. She states she is feeling about the same. We reviewed [facility] and she is still declining [facility]. She states she has a very supportive spouse and she states her
daughter resides nearby and is a nurse. She states her home is handicap ready with bars in the home. She states she has a walker, single point cane and wheelchair at home. She also has home 02 with [facility]. Prior to admission she resides with
his spouse in a one story home with one step to enter. Prior to admission she ambulates with a rolling walker or single point cane depending on how she feels. She has a prescription plan and uses [facility]. Medical work-up in progress. The
discharge plan is to return home with her spouse when medically stable.
[2025-05-20 13:16] LABS: Glucose - Point of Care 463 mg/dl (70-99)
--- NOTE | 2025-05-20 13:40 | W.PN.HOSP.TC ---
Today's Communication/Plan
-
Tikosyn load as per cardiology
IV diuresis
Adjust insulin regimen for hyperglycemia
Assessment / Plan
Assessment / Plan
Impression:
Acute CHF preserved EF
Acute hypoxic respiratory insufficiency secondary to above.
Symptomatic paroxysmal A-fib.
Chest pain likely multifactoral
Diabetes with hyperglycemia
Conditions present on admission:
Chronic CHF preserved EF
Paroxysmal A-fib with history of ablation.
Nonobstructive CAD
IDDM.
Hypertension
Obstructive sleep apnea on CPAP at night
Vocal cord paralysis
Chronic pain due to spinal stenosis on Suboxone
Plan:
Symptomatic A-fib baseline prior history of ablation
Attempt to introduce digoxin with no improvement of rate control.
Presented for Tikosyn load.
Plan is for discontinuation of digoxin
Optimizing volume status prior to initiation of Tikosyn.
In addition would optimal to drop off metformin given potential interaction and fluctuating renal function
Amiodarone is not an optimal action given COPD.
Continue Coreg.
Continue diltiazem.
Tikosyn load as per cardiology
Continue anticoagulation with apixaban
Telemetry monitoring
Acute CHF preserved EF.
Given chest pain, will update echocardiogram
Diuresis with Lasix 40 mg IV twice daily.
Daily weights
Daily BMP.
Off losartan given marginal BP
IDDM.
Persistent hyperglycemia. Possibly due to stress of acute hypoxia and CHF decompensation
Hold oral glucose lowering medications including glipizide and metformin
Update hemoglobin A1c 8.9
Basal bolus protocol
Increase Lantus to 40 units at bedtime/initiate AC aspart.
SGLT2 cost prohibitive
Adjust daily.
Obstructive sleep apnea
COPD by history
Not on oxygen supplementation prior to admission
Continue CPAP at night
Chronic pain due to spinal stenosis
Continue buprenorphine
Anticipated Discharge: 24 - 48 hours
Subjective/Interval History
-
Date of Service: May 20, 2025
Objective Data
-
Labs:
Laboratory Results
05/20/25 05/20/25 05/20/25
04:00 04:04 13:25
WBC 6.4
Hgb 9.2 L
Hct 28.8 L
Plt Count 216
Sodium 135
Potassium 4.4
Chloride 94 L
Carbon Dioxide 35 H
BUN 19 H
Creatinine 0.8
Glucose 279 H Pending
Calcium 9.7
Vital Signs:
Vital Signs
Temp Pulse Resp BP Pulse Ox
98.8 F 60 20 139/66 93
05/20/25 11:42 05/20/25 12:00 05/20/25 11:42 05/20/25 11:44 05/20/25 11:44
I&O
05/19/25 05/20/25 05/21/25
06:59 06:59 06:59
Intake Total 290 / 290 240 / 240
Output Total 1500 / 1500 1825 / 1825 800 / 800
Balance -1210 / -1210 -1585 / -1585 -800 / -800
Physical Exam
-
General: Well Developed and No Apparent Distress
HEENT: Normocephalic, Atraumatic and Moist Mucous Membranes
Respiratory: Clear to Auscultation
Cardiac: Regular Rhythm and S1/S2; Negative Murmur, Rub or Gallop
GI: Soft, Nontender, Nondistended and Normal Bowel Sounds; Negative Organomegaly
Rectal: Deferred by Provider
Musculoskeletal: No Clubbing, No Cyanosis and No Edema
Skin: Negative Rash
Neuro: Nonfocal/Grossly Intact
[2025-05-20 13:51] LABS: Glucose 437 mg/dl (70-99)
[2025-05-20] MEDS: NOVOLOG FLEXPEN-HIGH RESISTANCE 14 UNITS SC (14:21)
--- NOTE | 2025-05-20 14:29 | GLUCOSE ---
SITUATION: Lunch time accu check was critical high result 463 stat Glucose sent to lab resulted 437
BACKGROUND: Admitted with HF and Tikosyn Load.
ASSESSMENT: asymptomatic. Dr Elaine notified
RECOMMENDATION: High dose SS ordered.
[2025-05-20] MEDS: NOVOLOG FLEXPEN-MODERATE RESISTANCE SC (14:45)
[2025-05-20 17:39] LABS: Glucose - Point of Care 410 mg/dl (70-99)
[2025-05-20] MEDS: TIKOSYN 250 MCG PO (17:49)
[2025-05-20 18:20] LABS: Glucose 368 mg/dl (70-99)
[2025-05-20] MEDS: NOVOLOG FLEXPEN-HIGH RESISTANCE 12 UNITS SC (18:28)
[2025-05-20] MEDS: ULTRAM 50 MG PO (19:56)
[2025-05-20 22:11] LABS: Glucose - Point of Care 290 mg/dl (70-99)
[2025-05-20] MEDS: COZAAR 50 MG PO (22:22)
[2025-05-20] MEDS: ZANAFLEX 2 MG PO (22:26)
[2025-05-20] MEDS: NEURONTIN 600 MG PO (22:26)
[2025-05-21] VITALS (9 sets, daily range): BP systolic 106–135; BP diastolic 53–76; PULSE 70–71; BMI 35.6
--- NOTE | 2025-05-21 03:12 | PTCARENOTE ---
Assumed care of the pt @ 1900, aaox3, A paced on the monitor, HR 70's, VSS. Pox 98% on 2L O2 via NC, CPAP at bedtime. Pt ambulates to bathroom assistx1 with walker, urine orange. PRN tramadol and tylenol given at HS with + effect. Call vásquez within
reach, updated on poc and in agreement.
[2025-05-21 06:53] LABS: Glucose - Point of Care 338 mg/dl (70-99)
[2025-05-21] MEDS: TYLENOL 650 MG PO ×3 (07:40→23:57)
[2025-05-21] MEDS: NEURONTIN 300 MG PO (08:01)
[2025-05-21] MEDS: MAGNESIUM OXIDE 400 MG PO (08:01)
[2025-05-21] MEDS: THERAGRAN 1 TABLET PO (08:01)
[2025-05-21] MEDS: COREG 6.25 MG PO ×2 (08:01→20:34)
[2025-05-21] MEDS: VITAMIN D3 (cholecalciferol) 25 MCG PO (08:01)
[2025-05-21] MEDS: FEOSOL 325 MG PO (08:02)
[2025-05-21] MEDS: VITAMIN B-12 500 MCG PO (08:02)
[2025-05-21] MEDS: ELIQUIS 5 MG PO ×2 (08:02→20:34)
[2025-05-21] MEDS: PROTONIX 40 MG PO (08:02)
[2025-05-21] MEDS: OSCAL CAL 500 500 MG PO (08:02)
[2025-05-21] MEDS: KCL 20 MEQ PO (08:02)
[2025-05-21] MEDS: NOVOLOG FLEXPEN 4 UNITS SC (08:03)
[2025-05-21] MEDS: LANTUS 0.4 UNITS SC (08:03)
[2025-05-21] MEDS: CARDIZEM CD 300 MG PO (08:03)
[2025-05-21] MEDS: NOVOLOG FLEXPEN-HIGH RESISTANCE 10 UNITS SC ×2 (08:04→12:42)
[2025-05-21] MEDS: TIKOSYN 250 MCG PO ×2 (08:18→20:34)
[2025-05-21 08:28] LABS: Blood Urea Nitrogen 18 mg/dl (7-17); Calcium 9.8 mg/dl (8.4-10.2); Carbon Dioxide 37 mmol/L (22-30); Chloride 95 mmol/L (98-107); Estimated Creatinine Clearance 76 ml/min; Glucose 296 mg/dl (70-99); Potassium 4.7 mmol/L (3.5-5.1); Sodium 134 mmol/L (135-145); eGFR > 60.00
--- NOTE | 2025-05-21 09:18 | W.PN.CARDCBS ---
Addendum entered and electronically signed by Roosevelt Vasquez MD 05/21/25 14:26:
84-year-old woman with PAF admitted for dofetilide loading. [place] to be in heart failure at admission, started on furosemide 40 mg IV twice daily. Metformin discontinued at the time of admission related to initiation of dofetilide.
PMH: HFpEF, Saint Humza pacemaker, CKD 3 AA, hypertension, hyperlipidemia, luminal irregularities by cardiac catheterization 2019, type 2 diabetes, paralyzed vocal cord.
Meds reviewed
116/61, pulse 71, respiratory rate 20, afebrile, Weight is 91.2 kg, similar to yesterday, sitting in chair no distress, lungs relatively clear, regular rate and rhythm, JVD okay, edema is improved
BUN and creatinine are 18 and 0.6, potassium is 4.7, sugars are approximately 300
ECG today QTc is 462, pacing rate increased to 70
Impression:
PAF, for dofetilide loading
Chronic chest pain, presumed noncardiac
HFpEF
Saint Humza pacemaker
Hypertension
Hyperlipidemia
Nonobstructive CAD sleep apnea
Type 2 diabetes
Paralyzed vocal cord
Plan:
She is stable from a cardiac standpoint.
To remain in hospital for optimization of diabetic regimen prior to discharge.
Recommended cardiac meds at discharge:
Apixaban 5 mg twice daily
Carvedilol 6.25 mg twice daily
Diltiazem ER 300 mg daily
Dofetilide 250 mcg every 12 hours
Furosemide 40 mg p.o. twice daily (increased dose)
Spironolactone 12.5 mg at bedtime (new
Mag oxide 400 mg a day
BMP in 1 week
Follow-up to Dr. Aguirre.
Original Note:
Today's Communication / Plan
-
po lasix 40mg BID
tikosyn 250mcg Q12H
coreg 6.25mg BID
cardizem 300mg daily
eliquis 5mg BID
cozaar 50mg HS - could consider transition to spironolactone. if so, will stop supplemental potassium for DC
BMP/proBNP in 1 week
OP follow up with [facility] - 05/31 was soonest appt they could offer
Impression / Plan
-
PCP:
Primary heating and air conditioning mechanic: Dr. Aguirre
Impression:
Symptomatic, paroxysmal atrial fibrillation
Chest pain
Shortness of breath
Lower extremity edema
Heart failure preserved EF
Permanent pacemaker, Saint Humza MRI compatible
Chronic kidney disease stage IIIa
Hypertension
Hyperlipidemia
Nonobstructive CAD
Obstructive sleep apnea on CPAP
Type 2 diabetes mellitus
Paralyzed vocal cords
Previous cardiovascular testing:
Echo 02/18/2025: LVEF 55 to 60%, mildly dilated LA, mild to moderate mitral stenosis, mean gradient 5 mmHg, RVSP 57 mmHg
Left heart cath 03/25/2020: LAD widely patent with minimal luminal irregularities. Diagonal branch 40% ostial stenosis. OM1 50% stenosis involving bifurcation of both branches. OM 2 smooth proximal 40% stenosis. RCA small nondominant vessel.
Echo 05/17/2025: Normal LV size, LVEF 61%, normal RV size and systolic function with increased RV wall thickness, trileaflet sclerotic aortic valve, mild mitral stenosis, mean transmitral gradient 6 mmHg, mild to moderate TR, PASP 50 mmHg
Plan:
-presented for tikosyn loading and noted to be in acute CHF and with CP
-trops negative x4. last cath from 2019 as above
-will transition to po lasix 40mg BID upon DC. Cr stable at 0.6.
-BMP/proBNP in 1 week upon DC
-continue compression stockings
-in apaced rhythm. OP digoxin stopped this admit as contraindicated with tikosyn. continue coreg, diltiazem.
-continue tikosyn 250mcg Q12H. follow QTc, stable by EKG 18PM. avoiding amiodarone due to COPD
-continue eliquis. hgb in 9s, stable
-Losartan recently stopped in outpt setting due to hypotension but resumed here and tolerating.
-SGLT2-I cost prohibitive. mgmt of DM2 per primary service, noted to have elevated blood sugars since admission
-OP follow up with [facility]
-plan for DC to home today
-d/w nursing
Progress Note - Records And Information Manager
Subjective
Date of Service: May 21, 2025
eager for DC. reports improvement in breathing and LE edema
Objective
Labs:
05/20/25 04:04
05/21/25 07:46
Labs
Hgb 9.2 g/dL (12.0-16.0) L 05/20/25 04:04
Hct 28.8 % (37.0-47.0) L 05/20/25 04:04
Plt Count 216 10^3/uL (130-400) 05/20/25 04:04
Sodium 134 mmol/L (135-145) L 05/21/25 07:46
Potassium 4.7 mmol/L (3.5-5.1) 05/21/25 07:46
BUN 18 mg/dl (7-17) H 05/21/25 07:46
Creatinine 0.6 mg/dL (0.6-1.0) 05/21/25 07:46
Glucose 296 mg/dl (70-99) H 05/21/25 07:46
Digoxin 0.8 ng/ml (0.8-2.0) 05/17/25 10:15
Troponins
05/20/25 05/20/25 05/20/25
04:00 09:53 11:54
Troponin I < 0.012 < 0.012 Cancelled
Vital Signs and I&O:
Vital Signs
Temp Pulse Resp BP Pulse Ox
98.0 F 71 20 116/61 97
05/21/25 06:58 05/21/25 07:00 05/21/25 06:58 05/21/25 06:45 05/21/25 06:58
Vital Signs
Temp Pulse Resp BP Pulse Ox
98.0 F 71 20 116/61 97
05/21/25 06:58 05/21/25 07:00 05/21/25 06:58 05/21/25 06:45 05/21/25 06:58
Intake & Output
05/19/25 05/20/25 05/21/25 05/22/25
07:59 07:59 07:59 07:59
Intake Total 290 / 290 240 / 240
Output Total 1500 / 1500 2125 / 2125 2650 / 2650
Balance -1210 / -1210 -1885 / -1885 -2650 / -2650
Physical Exam
Physical Exam
GEN: No distress, awake, alert, oriented x3. on supp O2. sitting in chair
HEENT: supple, anicteric, mmm, eomi
LUNGS: CTA B/L, no wheezes/rales
CV: Reg, S1/S2, no murmur
ABD: soft, BS+, NT/ND
EXT: No cyanosis, clubbing. trace edema of RLE. compression stockings in place
NEURO: Gross non-focal
SKIN: Warm, pink, dry. No rash
[2025-05-21] MEDS: LASIX 40 MG IV (09:31)
[2025-05-21 12:05] LABS: Glucose - Point of Care 315 mg/dl (70-99)
[2025-05-21] MEDS: NOVOLOG FLEXPEN 10 UNITS SC ×2 (12:43→16:42)
[2025-05-21] MEDS: LANTUS 0.1 UNITS SC (13:18)
--- NOTE | 2025-05-21 13:33 | W.PN.HOSP.TC ---
Today's Communication/Plan
-
Remains hyperglycemic.
While off oral glucose lowering medications including glipizide and metformin, adjust insulin dose
Hopefully for discharge over the next 24 to 48 hours if reasonable blood glucose achieved.
Discussed with cardiology. Cardiovascular regimen being optimized. Lasix transition to p.o.
Assessment / Plan
Assessment / Plan
Impression:
Acute CHF preserved EF
Acute hypoxic respiratory insufficiency secondary to above.
Symptomatic paroxysmal A-fib.
Chest pain likely multifactoral
Diabetes with hyperglycemia
Conditions present on admission:
Chronic CHF preserved EF
Paroxysmal A-fib with history of ablation.
Nonobstructive CAD
IDDM.
Hypertension
Obstructive sleep apnea on CPAP at night
Vocal cord paralysis
Chronic pain due to spinal stenosis on Suboxone
Plan:
Symptomatic A-fib baseline prior history of ablation
Attempt to introduce digoxin with no improvement of rate control.
Presented for Tikosyn load.
Plan is for discontinuation of digoxin
Optimizing volume status prior to initiation of Tikosyn.
In addition would optimal to drop off metformin given potential interaction and fluctuating renal function
Amiodarone is not an optimal action given COPD.
Continue Coreg.
Continue diltiazem.
Continue Cozaar
Tikosyn load completed
Continue anticoagulation with apixaban
Telemetry monitoring
Acute CHF preserved EF.
Given chest pain, will update echocardiogram
Good response to diuresis. Lasix transition to p.o.
Daily weights
Daily BMP.
Off losartan given marginal BP
IDDM.
Persistent hyperglycemia. Possibly due to stress of acute hypoxia and CHF decompensation
Hold oral glucose lowering medications including glipizide and metformin
Update hemoglobin A1c 8.9
Basal bolus protocol
Increase Lantus to 50 units/initiated on AC as part, dose increased to 10 units
SGLT2 cost prohibitive
Adjust daily.
Obstructive sleep apnea
COPD by history
Not on oxygen supplementation prior to admission
Continue CPAP at night
Chronic pain due to spinal stenosis
Continue buprenorphine
Anticipated Discharge: 24 - 48 hours
Subjective/Interval History
-
Date of Service: May 21, 2025
Objective Data
-
Labs:
Laboratory Results
05/21/25
07:46
Sodium 134 L
Potassium 4.7
Chloride 95 L
Carbon Dioxide 37 H
BUN 18 H
Creatinine 0.6
Glucose 296 H
Calcium 9.8
Vital Signs:
Vital Signs
Temp Pulse Resp BP Pulse Ox
98.3 F 71 20 116/61 96
05/21/25 11:40 05/21/25 07:00 05/21/25 11:40 05/21/25 06:45 05/21/25 11:40
I&O
05/20/25 05/21/25 05/22/25
06:59 06:59 06:59
Intake Total 240 / 240
Output Total 2124 / 2124 2650 / 2650 950 / 950
Balance -1885 / -1885 -2650 / -2650 -950 / -950
Physical Exam
-
General: Well Developed and No Apparent Distress
HEENT: Normocephalic, Atraumatic and Moist Mucous Membranes
Respiratory: Clear to Auscultation
Cardiac: Regular Rhythm and S1/S2; Negative Murmur, Rub or Gallop
GI: Soft, Nontender, Nondistended and Normal Bowel Sounds; Negative Organomegaly
Rectal: Deferred by Provider
Musculoskeletal: No Clubbing, No Cyanosis and No Edema
Skin: Negative Rash
Neuro: Nonfocal/Grossly Intact
[2025-05-21] MEDS: LASIX 40 MG PO (16:28)
[2025-05-21] MEDS: SENOKOT-S 1 TABLET PO (16:28)
[2025-05-21] MEDS: MIRALAX 17 GRAMS PO (16:28)
[2025-05-21 16:40] LABS: Glucose - Point of Care 263 mg/dl (70-99)
[2025-05-21] MEDS: NOVOLOG FLEXPEN-HIGH RESISTANCE 7 UNITS SC (16:41)
[2025-05-21] MEDS: NEURONTIN 600 MG PO (21:39)
[2025-05-21] MEDS: ALDACTONE 12.5 MG PO (21:39)
[2025-05-21] MEDS: ULTRAM 50 MG PO (21:39)
[2025-05-21] MEDS: ZANAFLEX 2 MG PO (21:40)
[2025-05-21 21:45] LABS: Glucose - Point of Care 241 mg/dl (70-99)
[2025-05-22] VITALS (10 sets, daily range): BP systolic 102–149; BP diastolic 37–103; PULSE 70; BMI 35.8
--- NOTE | 2025-05-22 01:05 | PTCARENOTE ---
Assumed care on pt at 1900, aaox3, denies cp or SOB. A paced on the monitor, HR 70's, CPAP on at bedtime. Pt ambulates to bathroom assistx1 with walker, good urine output. Call vásquez within reach, updated on poc and in agreement.
[2025-05-22 08:14] LABS: Glucose - Point of Care 255 mg/dl (70-99)
[2025-05-22] MEDS: OSCAL CAL 500 500 MG PO (08:28)
[2025-05-22] MEDS: PROTONIX 40 MG PO (08:28)
[2025-05-22] MEDS: THERAGRAN 1 TABLET PO (08:28)
[2025-05-22] MEDS: TIKOSYN 250 MCG PO ×2 (08:28→20:17)
[2025-05-22] MEDS: MAGNESIUM OXIDE 400 MG PO (08:28)
[2025-05-22] MEDS: CARDIZEM CD 300 MG PO (08:28)
[2025-05-22] MEDS: COREG 6.25 MG PO ×2 (08:29→20:18)
[2025-05-22] MEDS: LASIX 40 MG PO ×2 (08:29→15:05)
[2025-05-22] MEDS: LANTUS 0.5 UNITS SC (08:29)
[2025-05-22] MEDS: VITAMIN B-12 500 MCG PO (08:29)
[2025-05-22] MEDS: VITAMIN D3 (cholecalciferol) 25 MCG PO (08:29)
[2025-05-22] MEDS: FEOSOL 325 MG PO (08:29)
[2025-05-22] MEDS: ELIQUIS 5 MG PO ×2 (08:29→20:17)
[2025-05-22] MEDS: NEURONTIN 300 MG PO (08:29)
[2025-05-22] MEDS: TYLENOL 650 MG PO ×2 (08:44→22:40)
[2025-05-22] MEDS: NOVOLOG FLEXPEN 10 UNITS SC ×3 (09:25→16:48)
[2025-05-22] MEDS: NOVOLOG FLEXPEN-HIGH RESISTANCE 7 UNITS SC ×2 (09:25→16:48)
[2025-05-22] MEDS: AMARYL 2 MG PO (09:49)
--- NOTE | 2025-05-22 09:53 | W.PN.HOSP.TC ---
Today's Communication/Plan
-
Reintroduce glimepiride. Continue with increased dose of insulin and follow Accu-Cheks
DC planning
Assessment / Plan
Assessment / Plan
Impression:
Acute CHF preserved EF
Acute hypoxic respiratory insufficiency secondary to above.
Symptomatic paroxysmal A-fib.
Chest pain likely multifactoral
Diabetes with hyperglycemia
Conditions present on admission:
Chronic CHF preserved EF
Paroxysmal A-fib with history of ablation.
Nonobstructive CAD
IDDM.
Hypertension
Obstructive sleep apnea on CPAP at night
Vocal cord paralysis
Chronic pain due to spinal stenosis on Suboxone
Plan:
Symptomatic A-fib baseline prior history of ablation
Attempt to introduce digoxin with no improvement of rate control.
Presented for Tikosyn load.
Plan is for discontinuation of digoxin
Optimizing volume status prior to initiation of Tikosyn.
In addition would optimal to drop off metformin given potential interaction and fluctuating renal function
Amiodarone is not an optimal action given COPD.
Continue Coreg.
Continue diltiazem.
Tikosyn load completed
Continue anticoagulation with apixaban
Telemetry monitoring
Acute CHF preserved EF.
Given chest pain, will update echocardiogram
Good response to diuresis. Lasix transition to p.o.
Daily weights
Daily BMP.
Off losartan given marginal BP
IDDM.
Persistent hyperglycemia. Possibly due to stress of acute hypoxia, poor glycemic control at home and CHF decompensation
UpdateD hemoglobin A1c- 8.9
Basal bolus protocol
Increase Lantus to 50 units/initiated on AC as part, dose increased to 10 units
SGLT2 cost prohibitive
Metformin discontinued due to interaction issues with Tikosyn. Reintroduce glimepiride.
Adjust daily.
Obstructive sleep apnea
COPD by history
Not on oxygen supplementation prior to admission
Continue CPAP at night
Chronic pain due to spinal stenosis
Continue buprenorphine
Insulin doses uptitrated yesterday. Blood sugars still in mid 200s. Would not bump up insulins today , would wait to see the effects of increased doses of insulin. Reintroduce glimepiride. DC once blood sugars less than 180.
Portions of this chart may have been created with voice recognition software. Occasional wrong word or 'sound alike' substitutions may have occurred due to the inherent limitations of voice recognition software.
Anticipated Discharge: 24 - 48 hours
Subjective/Interval History
-
Date of Service: May 22, 2025
Voicing no specific complaints. Denies any chest pain or shortness of breath.
Patient says she has been diabetic for probably a year. Managed by PCP. Comfortable using insulin at home.
Objective Data
-
Vital Signs:
Vital Signs
Temp Pulse Resp BP Pulse Ox
98.4 F 71 18 145/57 97
05/22/25 08:07 05/22/25 08:28 05/22/25 08:07 05/22/25 08:28 05/22/25 08:10
I&O
05/21/25 05/22/25 05/23/25
06:59 06:59 06:59
Intake Total 480 / 480
Output Total 2650 / 2650 3200 / 3200 800 / 800
Balance -2650 / -2650 -2720 / -2720 -800 / -800
Physical Exam
-
General: Comfortable
Respiratory: Non Labored Respirations; Negative Accessory Resp Muscle Use
Cardiac: Regular Rhythm (A paced rhythm) and S1/S2
GI: Soft
Neuro: AO x 3
Psych: Calm; Negative Confused or Agitated
Data Reviewed
-
Labs: Labs Reviewed by me
--- NOTE | 2025-05-22 10:05 | PTCARENOTE ---
Assumed care of pt from night RN. AAOx3. A paced on tele, HR 80s. SpO2 97% on room air. VSS. Pt assisted OOB to chair for breakfast. Standby assist with RW. PRN Tylenol given for back and neck pain with adequate relief. Pt remains in chair at this
time, call vásquez in reach.
[2025-05-22 12:11] LABS: Glucose - Point of Care 307 mg/dl (70-99)
[2025-05-22] MEDS: NOVOLOG FLEXPEN-HIGH RESISTANCE 10 UNITS SC (12:49)
[2025-05-22] MEDS: ULTRAM 50 MG PO (15:04)
[2025-05-22 16:48] LABS: Glucose - Point of Care 285 mg/dl (70-99)
[2025-05-22] MEDS: NEURONTIN 600 MG PO (22:41)
[2025-05-22] MEDS: ZANAFLEX 2 MG PO (22:41)
[2025-05-22] MEDS: ALDACTONE 12.5 MG PO (22:42)
[2025-05-22 22:47] LABS: Glucose - Point of Care 281 mg/dl (70-99)
[2025-05-23] VITALS (11 sets, daily range): BP systolic 91–194; BP diastolic 36–179; PULSE 72; BMI 35.4
--- NOTE | 2025-05-23 00:42 | PTCARENOTE ---
Received pt at change of shift OOB in chair. pt ambulating in room with assistance of RN and rw. A-paced on tele, HR 70's. pt sating 94% on RA. pt denies any CP or SOB. pt reporting pain of 7/10 in left leg. PRN Tylenol administered per pt
request--see OCT. CPAP applied to pt by RT. Encouraged pt to call RN with any questions/concerns. Call vásquez within reach.
[2025-05-23] MEDS: ULTRAM 50 MG PO ×2 (02:54→15:00)
[2025-05-23 08:10] LABS: Glucose - Point of Care 243 mg/dl (70-99)
[2025-05-23] MEDS: NOVOLOG FLEXPEN-HIGH RESISTANCE 4 UNITS SC (09:01)
[2025-05-23] MEDS: NOVOLOG FLEXPEN 10 UNITS SC (09:01)
[2025-05-23] MEDS: NEURONTIN 300 MG PO (09:02)
[2025-05-23] MEDS: LANTUS 0.5 UNITS SC (09:02)
[2025-05-23] MEDS: AMARYL 2 MG PO (09:03)
[2025-05-23] MEDS: MAGNESIUM OXIDE 400 MG PO (09:03)
[2025-05-23] MEDS: VITAMIN D3 (cholecalciferol) 25 MCG PO (09:03)
[2025-05-23] MEDS: CARDIZEM CD 300 MG PO (09:03)
[2025-05-23] MEDS: PROTONIX 40 MG PO (09:03)
[2025-05-23] MEDS: THERAGRAN 1 TABLET PO (09:03)
[2025-05-23] MEDS: ELIQUIS 5 MG PO ×2 (09:03→19:29)
[2025-05-23] MEDS: TIKOSYN 250 MCG PO ×2 (09:03→19:30)
[2025-05-23] MEDS: OSCAL CAL 500 500 MG PO (09:03)
[2025-05-23] MEDS: COREG 6.25 MG PO ×2 (09:03→19:30)
[2025-05-23] MEDS: LASIX 40 MG PO ×2 (09:03→17:09)
[2025-05-23] MEDS: VITAMIN B-12 500 MCG PO (09:04)
[2025-05-23] MEDS: FEOSOL 325 MG PO (09:04)
[2025-05-23] MEDS: TYLENOL 650 MG PO (09:28)
--- NOTE | 2025-05-23 09:54 | W.PN.HOSP.TC ---
Today's Communication/Plan
-
Increase the dose of insulin further
Change diet to diabetic diet
DC planning
Assessment / Plan
Assessment / Plan
Impression:
Acute CHF preserved EF
Acute hypoxic respiratory insufficiency secondary to above.
Symptomatic paroxysmal A-fib.
Chest pain likely multifactoral
Diabetes with hyperglycemia
Conditions present on admission:
Chronic CHF preserved EF
Paroxysmal A-fib with history of ablation.
Nonobstructive CAD
IDDM.
Hypertension
Obstructive sleep apnea on CPAP at night
Vocal cord paralysis
Chronic pain due to spinal stenosis on Suboxone
Plan:
Symptomatic A-fib baseline prior history of ablation
Attempt to introduce digoxin with no improvement of rate control.
Presented for Tikosyn load.
Plan is for discontinuation of digoxin
Optimizing volume status prior to initiation of Tikosyn.
In addition would optimal to drop off metformin given potential interaction and fluctuating renal function
Amiodarone is not an optimal action given COPD.
Continue Coreg.
Continue diltiazem.
Tikosyn load completed
Continue anticoagulation with apixaban
Telemetry monitoring
Acute CHF preserved EF.
Given chest pain, will update echocardiogram
Good response to diuresis. Lasix transition to p.o.
Daily weights
Daily BMP.
Off losartan given marginal BP
IDDM.
Persistent hyperglycemia. Possibly due to stress of acute hypoxia, poor glycemic control at home and CHF decompensation
UpdateD hemoglobin A1c- 8.9
Basal bolus protocol
Increase Lantus to 60 units/initiated on AC as part, dose increased to 13 units today. Change diet to diabetic diet
SGLT2 cost prohibitive
Metformin discontinued due to interaction issues with Tikosyn. Reintroduced at home glimepiride.
Adjust daily.
Obstructive sleep apnea
COPD by history
Not on oxygen supplementation prior to admission
Continue CPAP at night
Chronic pain due to spinal stenosis
Continue buprenorphine
Portions of this chart may have been created with voice recognition software. Occasional wrong word or 'sound alike' substitutions may have occurred due to the inherent limitations of voice recognition software.
Anticipated Discharge: Within 24 hours
Subjective/Interval History
-
Date of Service: May 23, 2025
No chest pain, shortness of breath or dizziness.
No nausea vomiting. Tolerating diet.
She says mostly blood sugars were under goal at home but she had an epidural injection within the last 3 to 4 weeks and she was questioning if that has any relation with increased blood sugars-too far out for it to be rising blood sugars now
Objective Data
-
Vital Signs:
Vital Signs
Temp Pulse Resp BP Pulse Ox
98.1 F 70 16 135/70 95
05/23/25 07:56 05/23/25 07:56 05/23/25 07:56 05/23/25 02:44 05/23/25 07:56
I&O
05/22/25 05/23/25 05/24/25
06:59 06:59 06:59
Intake Total 480 / 480 360 / 360
Output Total 3200 / 3200 2925 / 2925
Balance -2720 / -2720 -2565 / -2565
Physical Exam
-
General: Comfortable
Respiratory: Non Labored Respirations; Negative Accessory Resp Muscle Use
Cardiac: Regular Rhythm (AV paced rhythm) and S1/S2
Neuro: AO x 3
Psych: Calm
[2025-05-23 11:40] LABS: Glucose - Point of Care 298 mg/dl (70-99)
[2025-05-23] MEDS: NOVOLOG FLEXPEN-HIGH RESISTANCE 7 UNITS SC (12:21)
[2025-05-23] MEDS: NOVOLOG FLEXPEN 13 UNITS SC ×2 (12:21→17:10)
[2025-05-23] MEDS: MAALOX 30 ML PO (15:00)
[2025-05-23 17:04] LABS: Glucose - Point of Care 315 mg/dl (70-99)
[2025-05-23] MEDS: NOVOLOG FLEXPEN-HIGH RESISTANCE 10 UNITS SC (17:40)
--- NOTE | 2025-05-23 20:34 | PTCARENOTE ---
Received patient at change of shift. A paced on the monitor, HR in the 70s. VSS on 2L, CPAP HS. No complaints from pt at this time, call vásquez within reach.
[2025-05-23] MEDS: SENOKOT-S 1 TABLET PO (21:18)
[2025-05-23] MEDS: NEURONTIN 600 MG PO (21:18)
[2025-05-23] MEDS: ZANAFLEX 2 MG PO (21:18)
[2025-05-23] MEDS: ALDACTONE 12.5 MG PO (21:18)
[2025-05-23 21:25] LABS: Glucose - Point of Care 299 mg/dl (70-99)
[2025-05-24 04:17] VITALS: BP 129/64
[2025-05-24 04:51] VITALS: BMI 35.2
[2025-05-24 08:00] LABS: Glucose - Point of Care 195 mg/dl (70-99)
[2025-05-24 08:27] VITALS: BP 144/80
[2025-05-24] MEDS: AMARYL 2 MG PO (08:39)
[2025-05-24] MEDS: ELIQUIS 5 MG PO ×2 (08:39→19:18)
[2025-05-24] MEDS: COREG 6.25 MG PO ×2 (08:39→19:18)
[2025-05-24] MEDS: CARDIZEM CD 300 MG PO (08:39)
[2025-05-24] MEDS: OSCAL CAL 500 500 MG PO (08:40)
[2025-05-24] MEDS: NEURONTIN 300 MG PO (08:40)
[2025-05-24] MEDS: LASIX 40 MG PO ×2 (08:40→17:11)
[2025-05-24] MEDS: MAGNESIUM OXIDE 400 MG PO (08:40)
[2025-05-24] MEDS: FEOSOL 325 MG PO (08:40)
[2025-05-24] MEDS: THERAGRAN 1 TABLET PO (08:41)
[2025-05-24] MEDS: TIKOSYN 250 MCG PO ×2 (08:41→19:18)
[2025-05-24] MEDS: VITAMIN D3 (cholecalciferol) 25 MCG PO (08:41)
[2025-05-24] MEDS: VITAMIN B-12 500 MCG PO (08:41)
[2025-05-24] MEDS: PROTONIX 40 MG PO (08:42)
[2025-05-24] MEDS: NOVOLOG FLEXPEN-HIGH RESISTANCE 2 UNITS SC (08:43)
[2025-05-24] MEDS: NOVOLOG FLEXPEN 13 UNITS SC (08:44)
[2025-05-24] MEDS: LANTUS 0.6 UNITS SC (08:45)
[2025-05-24] MEDS: FLUSH (NSS) 1 FLUSH IV (08:45)
--- NOTE | 2025-05-24 09:38 | PTCARENOTE ---
Patient sitting oob this morning, accu check 195. Remains in A paced rhythm, offers no complaints. States she is due for a new pain patch today which her will bring in.
[2025-05-24 11:24] VITALS: BP 117/52
[2025-05-24] MEDS: MAALOX 30 ML PO (11:31)
--- NOTE | 2025-05-24 11:53 | CM ---
Reviewed chart. Met with and Mrs. Fu to review discharge plans. She states she is feeling well. We reviewed [facility]NA Services again and she is still declining VNA Services. She states her youngest son still resides with them and there is always
someone home with her. She states she has a diet kitchen cook at home. She already has home 02 at home and a pulse Ox to keep her eye on her home 02 levels. She uses a CPAP at night.
She has a very supportive spouse and she states her daughter resides nearby and is a nurse. She states her home is handicap ready with bars in the home. She states she has a walker, single point cane and wheelchair at home. She also has home 02
and CPAP Machine with [employer] [facility]. Prior to admission she resides with his spouse in a one story home with one step to enter. Prior to admission she ambulates with a rolling walker or single point cane depending on how she feels. She has a
prescription plan and uses [facility]. Medical work-up in progress. The discharge plan is to return home with her spouse when medically stable.
[2025-05-24 13:30] LABS: Glucose - Point of Care 320 mg/dl (70-99)
[2025-05-24] MEDS: NOVOLOG FLEXPEN-HIGH RESISTANCE 10 UNITS SC ×2 (13:31→17:12)
[2025-05-24] MEDS: NOVOLOG FLEXPEN 16 UNITS SC ×2 (13:32→17:12)
[2025-05-24] MEDS: BUTRANS 20 MCG/HR 1 PATCH TRANSDERM (15:17)
[2025-05-24] MEDS: REMOVE PT OWN BUTRANS PATCH 1 PATCH REMOVE (15:18)
[2025-05-24 16:07] VITALS: BP 143/52
--- NOTE | 2025-05-24 16:08 | W.PN.HOSP.TC ---
Today's Communication/Plan
-
Increase insulin
Assessment / Plan
Assessment / Plan
Impression:
Acute CHF preserved EF
Acute hypoxic respiratory insufficiency secondary to above.
Symptomatic paroxysmal A-fib.
Chest pain likely multifactoral
Diabetes with hyperglycemia
Conditions present on admission:
Chronic CHF preserved EF
Paroxysmal A-fib with history of ablation.
Nonobstructive CAD
IDDM.
Hypertension
Obstructive sleep apnea on CPAP at night
Vocal cord paralysis
Chronic pain due to spinal stenosis on Suboxone
Plan:
Symptomatic A-fib baseline prior history of ablation
Attempt to introduce digoxin with no improvement of rate control.
Presented for Tikosyn load.
Plan is for discontinuation of digoxin
Optimizing volume status prior to initiation of Tikosyn.
In addition would optimal to drop off metformin given potential interaction and fluctuating renal function
Amiodarone is not an optimal action given COPD.
Continue Coreg.
Continue diltiazem.
Tikosyn load completed
Continue anticoagulation with apixaban
Telemetry monitoring
Acute CHF preserved EF.
Given chest pain, will update echocardiogram
Good response to diuresis. Lasix transition to p.o.
Daily weights
Daily BMP.
Off losartan given marginal BP
IDDM.
Persistent hyperglycemia. Possibly due to stress of acute hypoxia, poor glycemic control at home and CHF decompensation
UpdateD hemoglobin A1c- 8.9
Basal bolus protocol
Increase Lantus to 70 units/initiated on AC as part, dose increased to 16 units today. Change diet to diabetic diet
SGLT2 cost prohibitive
Metformin discontinued due to interaction issues with Tikosyn. Reintroduced at home glimepiride.
Adjust daily.
Obstructive sleep apnea
COPD by history
Not on oxygen supplementation prior to admission
Continue CPAP at night
Chronic pain due to spinal stenosis
Continue buprenorphine
Portions of this chart may have been created with voice recognition software. Occasional wrong word or 'sound alike' substitutions may have occurred due to the inherent limitations of voice recognition software.
Anticipated Discharge: 24 - 48 hours
Subjective/Interval History
-
Date of Service: May 24, 2025
Objective Data
-
Vital Signs:
Vital Signs
Temp Pulse Resp BP Pulse Ox
99.3 F 73 20 144/80 97
05/24/25 16:07 05/24/25 08:27 05/24/25 16:07 05/24/25 08:27 05/24/25 16:07
I&O
05/23/25 05/24/25 05/25/25
06:59 06:59 06:59
Intake Total 360 / 360 720 / 720 240 / 240
Output Total 2925 / 2925 2175 / 2175
Balance -2565 / -2565 -1455 / -1455 240 / 240
Physical Exam
-
General: Comfortable
Respiratory: Non Labored Respirations; Negative Accessory Resp Muscle Use
Cardiac: Regular Rhythm (AV paced rhythm) and S1/S2
Neuro: AO x 3
Psych: Calm
[2025-05-24 16:40] LABS: Glucose - Point of Care 340 mg/dl (70-99)
[2025-05-24 18:38] VITALS: BP 157/61
--- NOTE | 2025-05-24 18:38 | PTCARENOTE ---
Accu checks > 300, pre-meal novolog increased and given as ordered with high dose sliding scale. Patient is eating her meals but denies any snacking and is frustrated that sugars remain so high.
[2025-05-24 18:45] LABS: Glucose - Point of Care 311 mg/dl (70-99)
[2025-05-24] MEDS: TYLENOL 650 MG PO (19:17)
[2025-05-24 22:06] VITALS: BP 134/66
[2025-05-24] MEDS: NEURONTIN 600 MG PO (22:06)
[2025-05-24] MEDS: ALDACTONE 12.5 MG PO (22:06)
[2025-05-24] MEDS: ZANAFLEX 2 MG PO (22:06)
[2025-05-24 22:10] LABS: Glucose - Point of Care 260 mg/dl (70-99)
[2025-05-24] MEDS: ULTRAM 50 MG PO (23:13)
--- NOTE | 2025-05-24 23:38 | PTCARENOTE ---
Received patient at change of shift. A paced on the monitor, HR in the 70s. 19:15 Pt complains of 5/10 L lower back/hip pain, PRN Tylenol administered as per order, see MAR. Blood sugar checked as per pt request, 315. 23:15 Pt complains of L leg
7/10 neuropathy/pain. PRN Tramadol administered as per pt request, see MAR. Call vásquez within reach.
[2025-05-25 00:05] VITALS: PULSE 78
[2025-05-25 04:18] VITALS: BP 117/65
[2025-05-25 06:00] VITALS: BMI 35.6
[2025-05-25 06:54] VITALS: BP 121/50
[2025-05-25 06:58] LABS: Glucose - Point of Care 148 mg/dl (70-99)
[2025-05-25] MEDS: PROTONIX 40 MG PO (08:26)
[2025-05-25] MEDS: NEURONTIN 300 MG PO (08:27)
[2025-05-25] MEDS: COREG 6.25 MG PO (08:27)
[2025-05-25] MEDS: TIKOSYN 250 MCG PO (08:27)
[2025-05-25] MEDS: ELIQUIS 5 MG PO (08:28)
[2025-05-25] MEDS: CARDIZEM CD 300 MG PO (08:28)
[2025-05-25] MEDS: LASIX 40 MG PO (08:28)
[2025-05-25] MEDS: MAGNESIUM OXIDE 400 MG PO (08:30)
[2025-05-25] MEDS: VITAMIN B-12 500 MCG PO (08:30)
[2025-05-25] MEDS: FEOSOL 325 MG PO (08:30)
[2025-05-25] MEDS: VITAMIN D3 (cholecalciferol) 25 MCG PO (08:30)
[2025-05-25] MEDS: THERAGRAN 1 TABLET PO (08:30)
[2025-05-25] MEDS: OSCAL CAL 500 500 MG PO (08:30)
[2025-05-25] MEDS: NOVOLOG FLEXPEN-HIGH RESISTANCE 1 UNITS SC (08:33)
[2025-05-25] MEDS: LANTUS 0.7 UNITS SC (08:33)
[2025-05-25] MEDS: NOVOLOG FLEXPEN 16 UNITS SC (08:34)
--- NOTE | 2025-05-25 10:34 | W.DS.TRANS ---
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
-
Discharge Instructions:
Discharge Diagnosis/Procedures CHF, tikosyn load
Diet 2 Gram Sodium,Restrict fluids to 64 oz
Activity As tolerated
Driving Restrictions As prior to admission
Blood Work BMP/proBNP in 1 week
Specialty Instructions Weigh Daily
Instructions: *PCP/Other Nutrition Technician Heart Failure Instructions
Stand-Alone Forms:
Changes to Home Medications: Yes
Discharge Medications:
DC Medications w/original date entered in [facility]
calcium 500 mg (as carbonate)-vitamin D3 3.125 mcg (125 unit) tablet 1 ea PO BID Supplement 03/23/20
estradiol 0.01% (0.1 mg/gram) vaginal cream (Estrace) 42.5 gm VG .TWICEAWEEK Hormonal Agent 03/23/20
famotidine 40 mg tablet (Pepcid) 40 mg PO HS Gastrointestinal Issue 03/23/20
losartan 50 mg tablet 50 mg PO HS Heart Disease/Condition 03/23/20
magnesium oxide 400 mg PO HS Supplement 03/23/20
multivitamin 1 ea PO DAILY Supplement 03/23/20
albuterol sulfate 90 mcg/actuation breath activated powder inhaler (ProAir RespiClick) 2 inh inhalation Q4H PRN SOB 05/17/25
azelastine 137 mcg (0.1 %) nasal spray 1 spray intranasal BID Allergies 05/17/25
buprenorphine 20 mcg/hour weekly transdermal patch 1 patch transdermal Q7D chronic pain 05/17/25
carvedilol 6.25 mg tablet 6.25 mg PO BID afib 05/17/25
diltiazem HCl 300 mg capsule,24 hr,extended release 300 mg PO DAILY Heart Disease/Condition 05/17/25
ferrous sulfate 325 mg (65 mg iron) tablet,delayed release 325 mg PO DAILY Supplement 05/17/25
gabapentin 300 mg tablet 300 mg PO DAILY neuropathy 05/17/25
gabapentin 600 mg tablet 600 mg PO HS neuropathy 05/17/25
potassium gluconate 595 mg (99 mg) tablet 595 mg PO DAILY Supplement 05/17/25
tizanidine 2 mg capsule 2 mg PO QHS PRN muscle spasms 05/17/25
tramadol 50 mg tablet 50 mg PO TID PRN back pain 05/17/25
zinc acetate 50 mg (zinc) capsule 50 mg PO DAILY Supplement 05/17/25
apixaban 5 mg tablet (Eliquis) 5 mg PO BID Blood Clot Prevention/Tx 05/20/25
dofetilide 250 mcg capsule 250 mcg PO Q12 #60 caps 05/21/25
furosemide 40 mg tablet 40 mg PO BID AT 0800,1600 #60 tabs 05/21/25
spironolactone 25 mg tablet 12.5 mg (1/2 x 25 mg) PO HS #30 tabs 05/21/25
insulin aspart U-100 100 unit/mL (3 mL) subcutaneous pen 16 unit (0.16 mL) SC AC #15 mL 05/25/25
insulin glargine 100 unit/mL (3 mL) subcutaneous pen (Lantus Solostar U-100 Insulin) 70 unit (0.7 mL) SC DAILY #15 mL 05/25/25
magnesium oxide 400 mg (241.3 mg magnesium) tablet 400 mg PO DAILY #30 tabs 05/25/25
Home Medication Changes
Tikosyn initiated
Lasix increased with addition of spironolactone
Hold oral close lower medications discontinued
Insulin Lantus increased with addition of AC NovoLog
Pending Results: No
--- NOTE | 2025-05-25 11:32 | CM ---
Reviewed chart. Met with Mrs. Fu to review discharge plans. She states she is feeling well and maybe able to go home soon. She is still declining VNA Services. She states her youngest son still resides with them and there is always someone home
with her. She states she has a secured entrance monitor at home. She already has home 02 at home and a pulse Ox to keep her eye on her home 02 levels. She uses a CPAP at night.
She has a very supportive spouse and she states her daughter resides nearby and is a nurse. She states her home is handicap ready with bars in the home. She states she has a walker, single point cane and wheelchair at home. She also has home 02
and CPAP Machine with [employer] [facility]. Prior to admission she resides with his spouse in a one story home with one step to enter. Prior to admission she ambulates with a rolling walker or single point cane depending on how she feels. She has a
prescription plan and uses [facility]. Medical work-up in progress. The discharge plan is to return home with her spouse when medically stable.
[2025-05-25 11:44] VITALS: BP 107/60
[2025-05-25] MEDS: TYLENOL 650 MG PO (12:10)
--- NOTE | 2025-05-25 12:23 | PTCARENOTE ---
Pt sitting OOb in chair all morning. Bilat tubigrip stockings applied earlier. Pt c/o L foot pain, which is not new, med with Tylenol 650 mg PO as ordered and requested, awaiting relief.
--- NOTE | 2025-05-25 13:10 | PTCARENOTE ---
Pt discharged, instructions reviewed with her and she expressed understanding. She left with her Buprenorphine patch in place, R upper back, as documented in intervention.
== END 2025-05-25 13:17 | disposition home or self-care (01) | DRG 637 ==
LOC: IVU 09:07
PROVIDERS: Nurse Practitioner; Nurse Practitioner Family; Physician Assistant; Physician Assistant Medical; ADMITTING PHYSICIAN Internal Medicine Cardiovascular Disease; ATTENDING PHYSICIAN Internal Medicine
PROC: 3E0DXRZ Introduction of Antiarrhythmic into Mouth and Pharynx, External Approach (ICD-10-PCS; 2025-05-18)
PROC: 5A09357 Assistance with Respiratory Ventilation, Less than 24 Consecutive Hours, Continuous Positive Airway Pressure (ICD-10-PCS; 2025-05-18)
DX: E11.65 Type 2 diabetes mellitus with hyperglycemia (principal); I50.33 Acute on chronic diastolic (congestive) heart failure; I13.0 Hypertensive heart and chronic kidney disease with heart failure and stage 1 through stage 4 chronic kidney disease, or unspecified chronic kidney disease; I47.19 Other supraventricular tachycardia; I48.0 Paroxysmal atrial fibrillation; I25.10 Atherosclerotic heart disease of native coronary artery without angina pectoris; N18.31 Chronic kidney disease, stage 3a; G47.33 Obstructive sleep apnea (adult) (pediatric); E78.5 Hyperlipidemia, unspecified; E11.22 Type 2 diabetes mellitus with diabetic chronic kidney disease; J38.00 Paralysis of vocal cords and larynx, unspecified; I05.0 Rheumatic mitral stenosis; I05.8 Other rheumatic mitral valve diseases; J44.9 Chronic obstructive pulmonary disease, unspecified; R09.02 Hypoxemia; R06.89 Other abnormalities of breathing; G89.29 Other chronic pain; M48.00 Spinal stenosis, site unspecified; I35.8 Other nonrheumatic aortic valve disorders; E83.42 Hypomagnesemia; E11.42 Type 2 diabetes mellitus with diabetic polyneuropathy; Z96.643 Presence of artificial hip joint, bilateral; Z95.0 Presence of cardiac pacemaker; Z88.2 Allergy status to sulfonamides; Z88.8 Allergy status to other drugs, medicaments and biological substances; Z88.6 Allergy status to analgesic agent; Z88.1 Allergy status to other antibiotic agents; Z88.5 Allergy status to narcotic agent; Z91.013 Allergy to seafood; Z79.84 Long term (current) use of oral hypoglycemic drugs; Z79.4 Long term (current) use of insulin; Z79.899 Other long term (current) drug therapy; Z79.01 Long term (current) use of anticoagulants; Z90.710 Acquired absence of both cervix and uterus; Z88.3 Allergy status to other anti-infective agents; Z83.3 Family history of diabetes mellitus; Z82.49 Family history of ischemic heart disease and other diseases of the circulatory system
CPT/HCPCS: 71046; 80048; 80053; 80162; 82947; 82962; 83036; 83735; 83880; 84484; 85027; 93005; 93306; 94640; 94660; Q9950